=== PATIENT | male | born 1955 | race Caucasian/White ===

== ENCOUNTER 2017-07-24 11:43 | Inpatient (IN) | payer MEDICARE, MEDICAID ==
[~2017-07-24] VITALS: Ht 170.2 cm; Wt 63.5 kg
[2017-07-24 11:45] VITALS: BP 150/88
[2017-07-24] MEDS ORDERED: CATAPRES0.1 MG ORAL (11:50)
[2017-07-24] MEDS ORDERED: COLACE100 MG ORAL (11:50)
[2017-07-24] MEDS ORDERED: NORCO 10-325 T1 EACH ORAL (11:50)
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
[2017-07-24 13:57] VITALS: BP 132/70
[2017-07-24 14:13] LABS: BASOPHILS % (AUTO) 0.7 % (0.0-2.0); EOSINOPHILS % (AUTO) 7.9 % (0.0-3.0); LYMPHOCYTES % (AUTO) 22.7 % (20.0-45.0); MEAN CORPUSCULAR HGB CONC 32.6 G/DL (32.0-36.0); MEAN CORPUSCULAR VOLUME 89 FL (80-99); MEAN PLATELET VOLUME 7.6 FL (6.5-10.1); MONOCYTES % (AUTO) 9.8 % (1.0-10.0); NEUTROPHILS % (AUTO) 58.9 % (45.0-75.0); PLATELET COUNT 187 K/UL (150-450); RED BLOOD COUNT 4.12 M/UL (4.70-6.10); RED CELL DISTRIBUTION WIDTH 13.3 % (11.6-14.8); WHITE BLOOD COUNT 8.3 K/UL (4.8-10.8)
[2017-07-24 14:27] LABS: ALANINE AMINOTRANSFERASE 14 U/L (3-41); ALBUMIN/GLOBULIN RATIO 1.2 (1.0-2.7); ANION GAP 12 (5-15); ASPARTATE AMINO TRANSFERASE 23 U/L (5-40); CALCIUM 9.8 mg/dL (8.6-10.2); CARBON DIOXIDE 29 mEQ/L (20-30); CHLORIDE 99 mEQ/L (98-107); CREATININE 0.8 mg/dL (0.7-1.2); GLOMERULAR FILTRATION RATE > 60 mL/min (>60); HEMOLYSIS 2; POTASSIUM 4.1 mEQ/L (3.4-4.9); SODIUM 140 mEQ/L (135-145); TOTAL PROTEIN 7.8 g/dL (6.6-8.7)
[2017-07-24] MEDS ORDERED: Ketorolac 30mg Inj IV ONE (14:45)
[2017-07-24 15:01] VITALS: BP 117/75
[2017-07-24 18:07] VITALS: BP 124/76
[2017-07-24 20:00] VITALS: BP 134/75
[2017-07-24] MEDS ORDERED: Morphine Sulfate 2mg/ml Inj IVP PRN ×2 (20:00→21:00)
[2017-07-24] MEDS ORDERED: Norco 10mg/325mg tab ORAL PRN (20:15)
[2017-07-24] MEDS ORDERED: Miralax 17gm pkt ORAL PRN (21:00)
[2017-07-24] MEDS ORDERED: Mylanta II UD 30ml ORAL PRN (21:00)
[2017-07-24] MEDS: D5 1/2NS 1,000 ML IV SCH (21:15)
[2017-07-24] MEDS: Heparin 5000 units/ml inj SUBQ SCH (22:49)
[2017-07-25 00:02] VITALS: BP 148/69
[2017-07-25] MEDS: Morphine Sulfate 4mg/ml Inj IVP PRN ×2 (02:36→07:42)
[2017-07-25 04:08] VITALS: BP 130/77
[2017-07-25 07:24] LABS: BASOPHILS % (AUTO) 1.1 % (0.0-2.0); EOSINOPHILS % (AUTO) 11.6 % (0.0-3.0); LYMPHOCYTES % (AUTO) 30.3 % (20.0-45.0); MEAN CORPUSCULAR HEMOGLOBIN 31.6 PG (27.0-31.0); MEAN CORPUSCULAR HGB CONC 35.2 G/DL (32.0-36.0); MEAN CORPUSCULAR VOLUME 90 FL (80-99); MEAN PLATELET VOLUME 7.9 FL (6.5-10.1); PLATELET COUNT 159 K/UL (150-450); RED BLOOD COUNT 3.53 M/UL (4.70-6.10); RED CELL DISTRIBUTION WIDTH 13.4 % (11.6-14.8); WHITE BLOOD COUNT 6.7 K/UL (4.8-10.8)
[2017-07-25 07:31] LABS: ALANINE AMINOTRANSFERASE 12 U/L (3-41); ALBUMIN/GLOBULIN RATIO 1.3 (1.0-2.7); ANION GAP 12 (5-15); ASPARTATE AMINO TRANSFERASE 22 U/L (5-40); CALCIUM 9.4 mg/dL (8.6-10.2); CARBON DIOXIDE 27 mEQ/L (20-30); CHLORIDE 101 mEQ/L (98-107); CREATININE 0.7 mg/dL (0.7-1.2); GLOMERULAR FILTRATION RATE > 60 mL/min (>60); HEMOLYSIS 3; POTASSIUM 4.2 mEQ/L (3.4-4.9); SODIUM 140 mEQ/L (135-145); TOTAL PROTEIN 6.9 g/dL (6.6-8.7)
[2017-07-25] MEDS: Docusate 100mg cap ORAL SCH (07:43)
[2017-07-25] MEDS: Heparin 5000 units/ml inj SUBQ SCH ×2 (07:44→21:53)
[2017-07-25 08:00] VITALS: BP 120/70
--- NOTE | 2017-07-25 08:11 | Consultation ---
History of Present Illness General Date patient seen: Jul 25, 2017 Chief Complaint: Pain Present Illness Allergies: Coded Allergies: No Known Allergies (Unverified , 07/24/17) Medication History Scheduled Clonidine Hcl* (Catapres*), 0.1 MG ORAL EVERY 6 HOURS, (Reported) Docusate Sodium* (Colace*), 100 MG ORAL DAILY, (Reported) Scheduled PRN Hydrocodone Bit/Acetaminophen 10-325* (Mobile 10-325*), 1 TAB ORAL Q4H PRN for For Pain, (Reported) Patient History Healthcare decision maker Resuscitation status Full Code Advanced Directive on File No Physical Exam Last 24 Hour Vital Signs Date Time Temp Pulse Resp B/P (MAP) Pulse Ox O2 Delivery O2 Flow Rate FiO2 07/25/17 08:00 98.2 75 19 120/70 100 Room Air 07/25/17 06:16 139/71 07/25/17 04:08 98.0 62 18 130/77 62 Room Air 07/25/17 00:31 148/69 07/25/17 00:02 98.0 67 18 148/69 98 Room Air 07/24/17 20:00 97.3 80 18 134/75 98 Room Air 07/24/17 18:07 97.1 74 20 124/76 98 Room Air 07/24/17 16:40 98.9 87 20 117/75 98 Room Air 07/24/17 15:01 98.9 87 20 117/75 98 Room Air 07/24/17 13:57 97.7 63 17 132/70 100 Room Air 07/24/17 11:45 96.4 76 18 150/88 98 Room Air 07/24/17 11:45 96.4 76 18 150/88 98 Room Air Laboratory Tests Test 07/24/17 13:40 07/25/17 05:15 White Blood Count 8.3 K/UL (4.8-10.8) 6.7 K/UL (4.8-10.8) Red Blood Count 4.12 M/UL (4.70-6.10) L 3.53 M/UL (4.70-6.10) L Hemoglobin 12.0 G/DL (14.2-18.0) L 11.2 G/DL (14.2-18.0) L Hematocrit 36.7 % (42.0-52.0) L 31.7 % (42.0-52.0) L Mean Corpuscular Volume 89 FL (80-99) 90 FL (80-99) Mean Corpuscular Hemoglobin 29.0 PG (27.0-31.0) 31.6 PG (27.0-31.0) H Mean Corpuscular Hemoglobin Concent 32.6 G/DL (32.0-36.0) 35.2 G/DL (32.0-36.0) Red Cell Distribution Width 13.3 % (11.6-14.8) 13.4 % (11.6-14.8) Platelet Count 187 K/UL (150-450) 159 K/UL (150-450) Mean Platelet Volume 7.6 FL (6.5-10.1) 7.9 FL (6.5-10.1) Neutrophils (%) (Auto) 58.9 % (45.0-75.0) 48.0 % (45.0-75.0) Lymphocytes (%) (Auto) 22.7 % (20.0-45.0) 30.3 % (20.0-45.0) Monocytes (%) (Auto) 9.8 % (1.0-10.0) 9.0 % (1.0-10.0) Eosinophils (%) (Auto) 7.9 % (0.0-3.0) H 11.6 % (0.0-3.0) H Basophils (%) (Auto) 0.7 % (0.0-2.0) 1.1 % (0.0-2.0) Sodium Level 140 mEQ/L (135-145) 140 mEQ/L (135-145) Potassium Level 4.1 mEQ/L (3.4-4.9) 4.2 mEQ/L (3.4-4.9) Chloride Level 99 mEQ/L (98-107) 101 mEQ/L (98-107) Carbon Dioxide Level 29 mEQ/L (20-30) 27 mEQ/L (20-30) Anion Gap 12 (5-15) 12 (5-15) Blood Urea Nitrogen 26 mg/dL (7-23) H 25 mg/dL (7-23) H Creatinine 0.8 mg/dL (0.7-1.2) 0.7 mg/dL (0.7-1.2) Estimat Glomerular Filtration Rate > 60 mL/min (>60) > 60 mL/min (>60) Glucose Level 125 mg/dL (74-106) H 100 mg/dL (74-106) Calcium Level 9.8 mg/dL (8.6-10.2) 9.4 mg/dL (8.6-10.2) Total Bilirubin 0.9 mg/dL (0.0-1.2) 0.8 mg/dL (0.0-1.2) Aspartate Amino Transf (AST/SGOT) 23 U/L (5-40) 22 U/L (5-40) Alanine Aminotransferase (ALT/SGPT) 14 U/L (3-41) 12 U/L (3-41) Alkaline Phosphatase 113 U/L (40-129) 108 U/L (40-129) Total Protein 7.8 g/dL (6.6-8.7) 6.9 g/dL (6.6-8.7) Albumin 4.4 g/dL (3.5-5.2) 3.9 g/dL (3.5-5.2) Globulin 3.4 g/dL 3.0 g/dL Albumin/Globulin Ratio 1.2 (1.0-2.7) 1.3 (1.0-2.7) Thyroid Stimulating Hormone (TSH) 2.280 uIU/mL (0.300-4.500) Height (Feet): 5 Height (Inches): 7.00 Weight (Pounds): 140 Medications Current Medications Medications (Trade) Dose Ordered Sig/Medhat Route PRN Reason Start Time Stop Time Status Last Admin Dose Admin Acetaminophen (Tylenol) 650 mg Q4H PRN ORAL fever 07/24/17 21:00 08/23/17 20:59 Acetaminophen/ Hydrocodone Bitart (Mobile 10/325) 1 ea Q4H PRN ORAL For Pain 07/24/17 20:15 07/31/17 20:14 Al Hydroxide/Mg Hydroxide (Mylanta II) 30 ml Q6H PRN ORAL dyspepsia 07/24/17 21:00 08/23/17 20:59 Clonidine HCl (Catapres) 0.1 mg EVERY 6 HOURS ORAL 07/25/17 00:00 08/24/17 00:00 07/25/17 06:16 Dextrose (Dextrose 50%) STAT PRN IV Hypoglycemia 07/24/17 21:00 08/23/17 20:59 Dextrose/Sodium Chloride 1,000 ml @ 50 mls/hr Q20H IV 07/24/17 21:15 08/23/17 21:14 07/24/17 21:15 Docusate Sodium (Colace) 100 mg DAILY ORAL 07/25/17 09:00 08/24/17 08:59 07/25/17 07:43 Heparin Sodium (Porcine) (Heparin 5000 units/ml) 5,000 units EVERY 12 HOURS SUBQ 07/24/17 21:00 08/23/17 20:59 07/25/17 07:44 Lorazepam (Ativan 2mg/ml 1ml) 0.5 mg Q4H PRN IV For Anxiety 07/24/17 21:00 07/31/17 20:59 Morphine Sulfate (Morphine Sulfate) 2 mg EVERY 4 HOURS PRN IVP For Pain 4-6 07/24/17 21:00 07/31/17 20:59 Morphine Sulfate (Morphine Sulfate) 4 mg Q4H PRN IVP For Pain 7-10 07/24/17 21:00 07/31/17 20:59 07/25/17 07:42 Ondansetron HCl (Zofran) 4 mg Q6H PRN IVP Nausea & Vomiting 07/24/17 21:00 08/23/17 20:59 Polyethylene Glycol (Miralax) 17 gm HSPRN PRN ORAL Constipation 07/24/17 21:00 08/23/17 20:59 Risperidone (RisperDAL) 0.5 mg BID ORAL 07/25/17 09:00 08/24/17 08:59 07/25/17 07:43 Zolpidem Tartrate (Ambien) 5 mg HSPRN PRN ORAL Insomnia 07/24/17 21:00 07/31/17 20:59 Assessment/Plan Assessment/Plan (1) Intractable pain (2) Fracture of right knee region (3) Pubic ramus fracture (4) H/o Polysubstance abuse seen dictated GILMA BANUELOS Jul 25, 2017 08:11
[2017-07-25] MEDS ORDERED: D5 1/2NS 1000ml IV ONE (10:18)
--- NOTE | 2017-07-25 10:50 | Diagnostic Imaging Report ---
Indication: Headache Technique: Contiguous 5 mm thick transaxial imaging of the head obtained in a Siemens Sensation [address] scanner. Soft tissue and bone windows generated. Total Dose length Product (DLP): [address] Dose Index Volume (CTDIvol): 70.38, 0.15 mGy Comparison: none Findings: There is mild prominence of the ventricles, basal cisterns, and cerebral sulci consistent with atrophy. Mild, nonspecific, white matter hypoattenuation is noted throughout the brain consistent with chronic small vessel disease. There is no midline shift, edema, acute hemorrhage, mass effect, or abnormal extra-axial fluid collections. Bones and extra osseous soft tissues are unremarkable. The right globe is absent. Impression: No acute intracranial bleed, mass effect or edema. Mild atrophy of the brain. Nonspecific white matter hypoattenuation probably due to chronic small vessel disease. Dr. Aparicio has communicated the preliminary results to the Emergency Department. There are no significant discrepancies. The CT scanner at [facility] is accredited by the [employer] and the scans are performed using dose optimization techniques as appropriate to a performed exam including Automatic Exposure control.
[2017-07-25 12:00] VITALS: BP 131/73
[2017-07-25] MEDS ORDERED: Norco 10mg/325mg tab ORAL PRN (13:15)
--- NOTE | 2017-07-25 14:29 | Consultation ---
History of Present Illness General Date patient seen: Jul 25, 2017 Chief Complaint: Pain Present Illness HPI 61-year-old male with hx of HTN, recent right tibial plateau fracture presents to the emergency department for intractable pain. Patient reports pain to be 10 out of 10 in severity at this time states he has had continued pain with no changes in character since initial injury. Patient denies new trauma or fall. Denies fevers, chills or erythema. Denies numbness tingling or loss of sensation or gross motor movements of the extremities, incontinence of bowel or bladder. Allergies: Coded Allergies: No Known Allergies (Unverified , 07/24/17) Medication History Scheduled Clonidine Hcl* (Catapres*), 0.1 MG ORAL EVERY 6 HOURS, (Reported) Docusate Sodium* (Colace*), 100 MG ORAL DAILY, (Reported) Scheduled PRN Hydrocodone Bit/Acetaminophen 10-325* ([place] 10-325*), 1 TAB ORAL Q4H PRN for For Pain, (Reported) Patient History Healthcare decision maker Resuscitation status Full Code Advanced Directive on File No Past Medical/Surgical History Past Medical/Surgical History: (1) Hypertension Review of Systems All Other Systems: negative except mentioned in HPI Physical Exam General Appearance: WD/WN, no apparent distress Lines, tubes and drains: peripheral, central line HEENT: normocephalic, atraumatic Neck: non-tender, normal alignment Respiratory/Chest: chest wall non-tender, lungs clear Cardiovascular/Chest: no JVD Abdomen: non tender Genitourinary/Rectal: normal genital exam, normal rectal exam Extremities: normal range of motion, non-tender Skin Exam: warm/dry Neurologic: international project engineer II-XII grossly normal Last 24 Hour Vital Signs Date Time Temp Pulse Resp B/P (MAP) Pulse Ox O2 Delivery O2 Flow Rate FiO2 07/25/17 12:04 131/73 07/25/17 12:00 97.5 68 19 131/73 99 Room Air 07/25/17 08:12 98.2 07/25/17 08:00 98.2 75 19 120/70 100 Room Air 07/25/17 06:16 139/71 07/25/17 04:08 98.0 62 18 130/77 62 Room Air 07/25/17 00:31 148/69 07/25/17 00:02 98.0 67 18 148/69 98 Room Air 07/24/17 20:00 97.3 80 18 134/75 98 Room Air 07/24/17 18:07 97.1 74 20 124/76 98 Room Air 07/24/17 16:40 98.9 87 20 117/75 98 Room Air 07/24/17 15:01 98.9 87 20 117/75 98 Room Air Intake and Output 07/25/17 07/26/17 19:00 07:00 Intake Total 360 ml Output Total 675 ml Balance -315 ml Intake Oral 360 ml Output Urine Total 675 ml Laboratory Tests Test 07/25/17 05:15 White Blood Count 6.7 K/UL (4.8-10.8) Red Blood Count 3.53 M/UL (4.70-6.10) L Hemoglobin 11.2 G/DL (14.2-18.0) L Hematocrit 31.7 % (42.0-52.0) L Mean Corpuscular Volume 90 FL (80-99) Mean Corpuscular Hemoglobin 31.6 PG (27.0-31.0) H Mean Corpuscular Hemoglobin Concent 35.2 G/DL (32.0-36.0) Red Cell Distribution Width 13.4 % (11.6-14.8) Platelet Count 159 K/UL (150-450) Mean Platelet Volume 7.9 FL (6.5-10.1) Neutrophils (%) (Auto) 48.0 % (45.0-75.0) Lymphocytes (%) (Auto) 30.3 % (20.0-45.0) Monocytes (%) (Auto) 9.0 % (1.0-10.0) Eosinophils (%) (Auto) 11.6 % (0.0-3.0) H Basophils (%) (Auto) 1.1 % (0.0-2.0) Sodium Level 140 mEQ/L (135-145) Potassium Level 4.2 mEQ/L (3.4-4.9) Chloride Level 101 mEQ/L (98-107) Carbon Dioxide Level 27 mEQ/L (20-30) Anion Gap 12 (5-15) Blood Urea Nitrogen 25 mg/dL (7-23) H Creatinine 0.7 mg/dL (0.7-1.2) Estimat Glomerular Filtration Rate > 60 mL/min (>60) Glucose Level 100 mg/dL (74-106) Calcium Level 9.4 mg/dL (8.6-10.2) Total Bilirubin 0.8 mg/dL (0.0-1.2) Aspartate Amino Transf (AST/SGOT) 22 U/L (5-40) Alanine Aminotransferase (ALT/SGPT) 12 U/L (3-41) Alkaline Phosphatase 108 U/L (40-129) Total Protein 6.9 g/dL (6.6-8.7) Albumin 3.9 g/dL (3.5-5.2) Globulin 3.0 g/dL Albumin/Globulin Ratio 1.3 (1.0-2.7) Thyroid Stimulating Hormone (TSH) 2.280 uIU/mL (0.300-4.500) Height (Feet): 5 Height (Inches): 7.00 Weight (Pounds): 140 Medications Current Medications Medications (Trade) Dose Ordered Sig/Medhat Route PRN Reason Start Time Stop Time Status Last Admin Dose Admin Acetaminophen (Tylenol) 650 mg Q4H PRN ORAL fever 07/24/17 21:00 08/23/17 20:59 Acetaminophen/ Hydrocodone Bitart ([place] 10/325) 1 ea Q4H PRN ORAL MILD BREAKTHROUGH PAIN 07/25/17 13:15 07/31/17 20:14 Al Hydroxide/Mg Hydroxide (Mylanta II) 30 ml Q6H PRN ORAL dyspepsia 07/24/17 21:00 08/23/17 20:59 Clonidine HCl (Catapres) 0.1 mg EVERY 6 HOURS ORAL 07/25/17 00:00 08/24/17 00:00 07/25/17 12:04 Dextrose (Dextrose 50%) STAT PRN IV Hypoglycemia 07/24/17 21:00 08/23/17 20:59 Dextrose/Sodium Chloride 1,000 ml @ 50 mls/hr Q20H IV 07/24/17 21:15 08/23/17 21:14 07/24/17 21:15 Docusate Sodium (Colace) 100 mg DAILY ORAL 07/25/17 09:00 08/24/17 08:59 07/25/17 07:43 Heparin Sodium (Porcine) (Heparin 5000 units/ml) 5,000 units EVERY 12 HOURS SUBQ 07/24/17 21:00 08/23/17 20:59 07/25/17 07:44 Lorazepam (Ativan 2mg/ml 1ml) 0.5 mg Q4H PRN IV For Anxiety 07/24/17 21:00 07/31/17 20:59 Methadone HCl (Methadone HCl) 75 mg DAILY ORAL 07/25/17 13:30 08/01/17 13:29 07/25/17 13:08 Morphine Sulfate (Morphine Sulfate) 2 mg Q4H PRN IVP MODERATE BREAKTHROUGH PAIN 07/25/17 13:15 07/31/17 20:59 Morphine Sulfate (Morphine Sulfate) 4 mg Q4H PRN IVP SEVERE BREAKTHROUGH PAIN 07/25/17 13:15 07/31/17 20:59 Ondansetron HCl (Zofran) 4 mg Q6H PRN IVP Nausea & Vomiting 07/24/17 21:00 08/23/17 20:59 Polyethylene Glycol (Miralax) 17 gm HSPRN PRN ORAL Constipation 07/24/17 21:00 08/23/17 20:59 Risperidone (RisperDAL) 0.5 mg BID ORAL 07/25/17 09:00 08/24/17 08:59 07/25/17 07:43 Zolpidem Tartrate (Ambien) 5 mg HSPRN PRN ORAL Insomnia 07/24/17 21:00 07/31/17 20:59 Assessment/Plan Problem List: (1) Hypertension ICD Codes: I10 - Essential (primary) hypertension SNOMED: 06009483 (2) Intractable pain ICD Codes: R52 - Pain, unspecified SNOMED: 32258819 (3) Pubic ramus fracture ICD Codes: S32.599A - Other specified fracture of unspecified pubis, initial encounter for closed fracture SNOMED: 13603945 Qualifiers: Qualified Codes: S32.592A - Other specified fracture of left pubis, initial encounter for closed fracture (4) Fracture of right knee region SNOMED: 38422192 Assessment/Plan symptomatic treatment Pain consult watch BP dvt prophylaxis JAMIE MENDEZ Jul 25, 2017 14:29
[2017-07-25 16:00] VITALS: BP 123/65
--- NOTE | 2017-07-25 17:00 | Consultation ---
DATE OF CONSULTATION: 07/24/2017 HISTORY OF PRESENT ILLNESS: The patient is a male patient who is 61-year-old, he was admitted to [facility] secondary to intractable pain, but he also has an overlying diagnosis of paranoid schizophrenia, multiple psychiatric admissions and so that is why there was a psychiatric consultation requested to evaluate this patient to reduce agitation and irritability. PAST MEDICAL HISTORY: The patient has history of hypertension. ALLERGIES: No known drug allergies. SOCIAL HISTORY: The patient lives in , financially supported by [facility] and Medicare. He is currently living in [facility]. MENTAL STATUS EXAMINATION: This is a 61-year-old male with psychomotor retardation. Mood is depressed. Affect guarded and restricted. Thought process disorganized and illogical. Denies any current suicidal or homicidal thoughts. Insight and judgment is poor. DIAGNOSIS: Paranoid schizophrenia with acute exacerbation. PLAN: My plan for this patient is to treat him with a psychotropic medication regimen to stabilize his mood and encourage him to interact appropriately with staff and another patients. Chart reviewed and discussed with staff. Seen and assessed in his room. I would like to thank Dr. Sudhir Schmitt for this interesting consultation. Taya Lane M.D. DR: DERECK JOB#: [id number] CC:
[2017-07-25] MEDS: D5 1/2NS 1,000 ML IV SCH (17:22)
--- NOTE | 2017-07-25 19:42 | Cardiology Report ---
APPROVED REPORT EKG Measurement Heart [id number] Normal sinus rhythm Nonspecific ST abnormality Abnormal ECG
[2017-07-25] MEDS: Morphine Sulfate 2mg/ml Inj IVP PRN (19:46)
[2017-07-25 20:00] VITALS: BP 115/68
[2017-07-26] VITALS: BP 132/76
[2017-07-26] MEDS: Morphine Sulfate 4mg/ml Inj IVP PRN (00:23)
--- NOTE | 2017-07-26 01:15 | Progress Note ---
DATE: 07/25/2017 SUBJECTIVE: I am going to continue treating this patient with psychotropic medications to prevent any further decline in his cognition. Chart was reviewed and discussed with staff. Seen and assessed at bedside. Taya Lane M.D. DR: DERECK JOB#: [id number] CC:
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
[2017-07-26 04:00] VITALS: BP 132/69
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
[2017-07-26] MEDS: Morphine Sulfate 2mg/ml Inj IVP PRN ×2 (05:57→18:54)
[2017-07-26 06:48] LABS: ANION GAP 11 (5-15); CALCIUM 9.5 mg/dL (8.6-10.2); CARBON DIOXIDE 25 mEQ/L (20-30); CHLORIDE 101 mEQ/L (98-107); CREATININE 0.9 mg/dL (0.7-1.2); GLOMERULAR FILTRATION RATE > 60 mL/min (>60); HEMOLYSIS 5; POTASSIUM 3.9 mEQ/L (3.4-4.9); SODIUM 137 mEQ/L (135-145)
[2017-07-26 06:57] LABS: BASOPHILS % (AUTO) 0.9 % (0.0-2.0); EOSINOPHILS % (AUTO) 8.5 % (0.0-3.0); LYMPHOCYTES % (AUTO) 24.4 % (20.0-45.0); MEAN CORPUSCULAR HEMOGLOBIN 29.3 PG (27.0-31.0); MEAN CORPUSCULAR HGB CONC 32.9 G/DL (32.0-36.0); MEAN CORPUSCULAR VOLUME 89 FL (80-99); MEAN PLATELET VOLUME 6.9 FL (6.5-10.1); MONOCYTES % (AUTO) 9.8 % (1.0-10.0); NEUTROPHILS % (AUTO) 56.3 % (45.0-75.0); PLATELET COUNT 151 K/UL (150-450); RED BLOOD COUNT 3.91 M/UL (4.70-6.10); RED CELL DISTRIBUTION WIDTH 13.1 % (11.6-14.8); WHITE BLOOD COUNT 5.2 K/UL (4.8-10.8)
[2017-07-26 08:00] VITALS: BP 110/67
--- NOTE | 2017-07-26 08:39 | General Progress Note ---
Assessment/Plan Assessment/Plan (1) Intractable pain (2) Fracture of right knee region (3) Pubic ramus fracture (4) H/o Polysubstance abuse Pt will be continued on Morphine, [place] and Methadone. D/w Dr. Clay and he concurred. Subjective Date patient seen: Jul 26, 2017 Time patient seen: 08:00 - am Allergies: Coded Allergies: No Known Allergies (Unverified , 07/24/17) Subjective REVIEW OF SYSTEMS: Denies rash, fever, chills, sweating, dizziness, drowsiness, blurred vision, sore throat, or change in his weight. No shortness of breath, chest pain, palpitations, or cough. No nausea, vomiting, diarrhea, or blood in the stool or urine. No bowel or bladder incontinence. No dysuria. He complains of right knee pain and pelvic pain. SUBJECTIVE: Patient is in bed no signs of pain or distress. The pain has been tolerated on the current medication. Objective Last 24 Hour Vital Signs Date Time Temp Pulse Resp B/P (MAP) Pulse Ox O2 Delivery O2 Flow Rate FiO2 07/26/17 08:00 97.7 70 18 110/67 99 Room Air 07/26/17 06:02 132/70 07/26/17 04:00 97.3 63 18 132/69 100 Room Air 07/26/17 00:17 132/76 07/26/17 00:00 97.1 64 18 132/76 99 Room Air 07/25/17 20:00 97.6 64 18 115/68 98 Room Air 07/25/17 17:22 123/65 07/25/17 16:00 97.9 67 20 123/65 99 Room Air 07/25/17 12:04 131/73 07/25/17 12:00 97.5 68 19 131/73 99 Room Air Laboratory Tests 07/26/17 05:35: White Blood Count 5.2, Red Blood Count 3.91L, Hemoglobin 11.5L, Hematocrit 34.8L , Mean Corpuscular Volume 89, Mean Corpuscular Hemoglobin 29.3, Mean Corpuscular Hemoglobin Concent 32.9, Red Cell Distribution Width 13.1, Platelet Count 151, Mean Platelet Volume 6.9, Neutrophils (%) (Auto) 56.3, Lymphocytes (% ) (Auto) 24.4, Monocytes (%) (Auto) 9.8, Eosinophils (%) (Auto) 8.5H, Basophils (%) (Auto) 0.9, Sodium Level 137, Potassium Level 3.9, Chloride Level 101, Carbon Dioxide Level 25, Anion Gap 11, Blood Urea Nitrogen 19, Creatinine 0.9, Estimat Glomerular Filtration Rate > 60, Glucose Level 117H, Calcium Level 9.5 Height (Feet): 5 Height (Inches): 7.00 Weight (Pounds): 140 Objective GENERAL: Alert, awake, and oriented. HEENT: PERRLA. NECK: Range of motion is full in all directions. No tenderness to paracervical muscles. No adenopathy. LUNGS: Decreased breath sounds bilaterally. ABDOMEN: Benign. BACK: Range of motion is decreased in flexion and extension with tenderness to paraspinal muscles. No tenderness to trapezius or rhomboid muscles. EXTREMITIES: Lower extremity range of motion is decreased due to the patient's clinical condition. Motor is intact. No cyanosis. No clubbing. NEURO: No changes. GILMA BANUELOS Jul 26, 2017 08:39
[2017-07-26] MEDS: Heparin 5000 units/ml inj SUBQ SCH ×2 (09:00→21:42)
[2017-07-26] MEDS: Docusate 100mg cap ORAL SCH (09:37)
[2017-07-26 12:00] VITALS: BP 120/70
[2017-07-26] MEDS: D5 1/2NS 1,000 ML IV SCH (12:43)
--- NOTE | 2017-07-26 14:16 | General Progress Note ---
Assessment/Plan Problem List: (1) Intractable pain ICD Codes: R52 - Pain, unspecified SNOMED: 59233859 (2) Hypertension ICD Codes: I10 - Essential (primary) hypertension SNOMED: 63387014 (3) Pubic ramus fracture ICD Codes: S32.599A - Other specified fracture of unspecified pubis, initial encounter for closed fracture SNOMED: 30080470 Qualifiers: Qualified Codes: S32.592A - Other specified fracture of left pubis, initial encounter for closed fracture (4) Fracture of right knee region SNOMED: 59877384 Status: stable, progressing, tolerating diet Assessment/Plan ot pt diet pain control cbc bmp am Subjective Constitutional: Reports: weakness Allergies: Coded Allergies: No Known Allergies (Unverified , 07/24/17) All Systems: reviewed and negative except above Subjective calm in bed Objective Last 24 Hour Vital Signs Date Time Temp Pulse Resp B/P (MAP) Pulse Ox O2 Delivery O2 Flow Rate FiO2 07/26/17 12:00 97.4 68 17 120/70 98 Room Air 07/26/17 12:00 120/70 07/26/17 08:00 97.7 70 18 110/67 99 Room Air 07/26/17 06:02 132/70 07/26/17 04:00 97.3 63 18 132/69 100 Room Air 07/26/17 00:17 132/76 07/26/17 00:00 97.1 64 18 132/76 99 Room Air 07/25/17 20:00 97.6 64 18 115/68 98 Room Air 07/25/17 17:22 123/65 07/25/17 16:00 97.9 67 20 123/65 99 Room Air Intake and Output 07/26/17 07/27/17 19:00 07:00 Intake Total 150 ml Balance 150 ml IV Total 150 ml # Voids 2 Laboratory Tests 07/26/17 05:35: White Blood Count 5.2, Red Blood Count 3.91L, Hemoglobin 11.5L, Hematocrit 34.8L , Mean Corpuscular Volume 89, Mean Corpuscular Hemoglobin 29.3, Mean Corpuscular Hemoglobin Concent 32.9, Red Cell Distribution Width 13.1, Platelet Count 151, Mean Platelet Volume 6.9, Neutrophils (%) (Auto) 56.3, Lymphocytes (% ) (Auto) 24.4, Monocytes (%) (Auto) 9.8, Eosinophils (%) (Auto) 8.5H, Basophils (%) (Auto) 0.9, Sodium Level 137, Potassium Level 3.9, Chloride Level 101, Carbon Dioxide Level 25, Anion Gap 11, Blood Urea Nitrogen 19, Creatinine 0.9, Estimat Glomerular Filtration Rate > 60, Glucose Level 117H, Calcium Level 9.5 Height (Feet): 5 Height (Inches): 7.00 Weight (Pounds): 140 General Appearance: lethargic EENT: normal ENT inspection Neck: normal alignment Cardiovascular: normal peripheral pulses, normal rate, regular rhythm Respiratory/Chest: chest wall non-tender, lungs clear, normal breath sounds Abdomen: normal bowel sounds, non tender, soft Extremities: normal inspection Edema: no edema noted Arm (L), no edema noted Arm (R), no edema noted Leg (L), no edema noted Leg (R), no edema noted Pedal (L), no edema noted Pedal (R), no edema noted Generalized Neurologic: motor weakness Skin: normal pigmentation, warm/dry GENIE PALACIOS Jul 26, 2017 14:16
[2017-07-26 16:06] VITALS: BP 129/77
--- NOTE | 2017-07-26 18:59 | Pulmonology Progress Note ---
Assessment/Plan Problems: (1) Intractable pain (2) Hypertension (3) Pubic ramus fracture (4) Fracture of right knee region Assessment/Plan continue analgesics pt/ot dc planning Subjective ROS Limited/Unobtainable: No Allergies: Coded Allergies: No Known Allergies (Unverified , 07/24/17) Objective Last 24 Hour Vital Signs Date Time Temp Pulse Resp B/P (MAP) Pulse Ox O2 Delivery O2 Flow Rate FiO2 07/26/17 17:23 129/77 07/26/17 16:06 98.2 19 129/77 97 Room Air 07/26/17 12:00 97.4 68 17 120/70 98 Room Air 07/26/17 12:00 120/70 07/26/17 08:00 97.7 70 18 110/67 99 Room Air 07/26/17 06:02 132/70 07/26/17 04:00 97.3 63 18 132/69 100 Room Air 07/26/17 00:17 132/76 07/26/17 00:00 97.1 64 18 132/76 99 Room Air 07/25/17 20:00 97.6 64 18 115/68 98 Room Air Intake and Output 07/26/17 07/27/17 19:00 07:00 Intake Total 640 ml Balance 640 ml Intake Oral 340 ml IV Total 300 ml # Voids 5 # Bowel Movements 1 General Appearance: WD/WN HEENT: normocephalic, atraumatic Respiratory/Chest: chest wall non-tender, lungs clear Cardiovascular: normal peripheral pulses, normal rate Abdomen: normal bowel sounds, soft, non tender Extremities: no cyanosis Skin: no rash Neurologic/Psychiatric: hr assistant II-XII grossly normal Microbiology Date/Time Source Procedure Growth Status 07/24/17 16:38 Nasal Nares MRSA Culture - Final NO METHICILLIN RESISTANT STAPH AUREUS... Complete 07/24/17 16:38 Rectum VRE Culture - Final NO VANCOMYCIN RESISTANT ENTEROCOCCUS ... Complete Laboratory Tests 07/26/17 05:35: White Blood Count 5.2, Red Blood Count 3.91L, Hemoglobin 11.5L, Hematocrit 34.8L , Mean Corpuscular Volume 89, Mean Corpuscular Hemoglobin 29.3, Mean Corpuscular Hemoglobin Concent 32.9, Red Cell Distribution Width 13.1, Platelet Count 151, Mean Platelet Volume 6.9, Neutrophils (%) (Auto) 56.3, Lymphocytes (% ) (Auto) 24.4, Monocytes (%) (Auto) 9.8, Eosinophils (%) (Auto) 8.5H, Basophils (%) (Auto) 0.9, Sodium Level 137, Potassium Level 3.9, Chloride Level 101, Carbon Dioxide Level 25, Anion Gap 11, Blood Urea Nitrogen 19, Creatinine 0.9, Estimat Glomerular Filtration Rate > 60, Glucose Level 117H, Calcium Level 9.5 Current Medications Medications (Trade) Dose Ordered Sig/Medhat Route PRN Reason Start Time Stop Time Status Last Admin Dose Admin Acetaminophen (Tylenol) 650 mg Q4H PRN ORAL fever 07/24/17 21:00 08/23/17 20:59 Acetaminophen/ Hydrocodone Bitart ([place] 10/325) 1 ea Q4H PRN ORAL MILD BREAKTHROUGH PAIN 07/25/17 13:15 07/31/17 20:14 Al Hydroxide/Mg Hydroxide (Mylanta II) 30 ml Q6H PRN ORAL dyspepsia 07/24/17 21:00 08/23/17 20:59 Clonidine HCl (Catapres) 0.1 mg EVERY 6 HOURS ORAL 07/25/17 00:00 08/24/17 00:00 07/26/17 06:02 Dextrose (Dextrose 50%) STAT PRN IV Hypoglycemia 07/24/17 21:00 08/23/17 20:59 Dextrose/Sodium Chloride 1,000 ml @ 50 mls/hr Q20H IV 07/24/17 21:15 08/23/17 21:14 07/26/17 12:43 Docusate Sodium (Colace) 100 mg DAILY ORAL 07/25/17 09:00 08/24/17 08:59 07/26/17 09:37 Heparin Sodium (Porcine) (Heparin 5000 units/ml) 5,000 units EVERY 12 HOURS SUBQ 07/24/17 21:00 08/23/17 20:59 07/26/17 09:00 Lorazepam (Ativan 2mg/ml 1ml) 0.5 mg Q4H PRN IV For Anxiety 07/24/17 21:00 07/31/17 20:59 Methadone HCl (Methadone HCl) 75 mg DAILY ORAL 07/25/17 13:30 08/01/17 13:29 07/26/17 09:39 Morphine Sulfate (Morphine Sulfate) 2 mg Q4H PRN IVP MODERATE BREAKTHROUGH PAIN 07/25/17 13:15 07/31/17 20:59 07/26/17 18:54 Morphine Sulfate (Morphine Sulfate) 4 mg Q4H PRN IVP SEVERE BREAKTHROUGH PAIN 07/25/17 13:15 07/31/17 20:59 07/26/17 00:23 Ondansetron HCl (Zofran) 4 mg Q6H PRN IVP Nausea & Vomiting 07/24/17 21:00 08/23/17 20:59 Polyethylene Glycol (Miralax) 17 gm HSPRN PRN ORAL Constipation 07/24/17 21:00 08/23/17 20:59 Risperidone (RisperDAL) 0.5 mg BID ORAL 07/25/17 09:00 08/24/17 08:59 07/26/17 18:05 Zolpidem Tartrate (Ambien) 5 mg HSPRN PRN ORAL Insomnia 07/24/17 21:00 07/31/17 20:59 JAMIE MENDEZ Jul 26, 2017 18:59
[2017-07-26 20:09] VITALS: BP 126/77
[2017-07-26] MEDS: Norco 10mg/325mg tab ORAL PRN (21:40)
[2017-07-26] MEDS: Zolpidem 5mg tab ORAL PRN (23:15)
[2017-07-27] VITALS (8 sets, daily range): BP systolic 101–150; BP diastolic 54–104
[2017-07-27] MEDS: LORazepam Inj 2mg/ml 1ml IV PRN (04:26)
[2017-07-27] MEDS: Morphine Sulfate 2mg/ml Inj IVP PRN (05:03)
[2017-07-27] MEDS: Norco 10mg/325mg tab ORAL PRN (05:45)
[2017-07-27 06:56] LABS: BASOPHILS % (AUTO) 1.1 % (0.0-2.0); EOSINOPHILS % (AUTO) 3.4 % (0.0-3.0); LYMPHOCYTES % (AUTO) 14.2 % (20.0-45.0); MEAN CORPUSCULAR HGB CONC 33.9 G/DL (32.0-36.0); MEAN CORPUSCULAR VOLUME 89 FL (80-99); MEAN PLATELET VOLUME 6.9 FL (6.5-10.1); MONOCYTES % (AUTO) 9.2 % (1.0-10.0); NEUTROPHILS % (AUTO) 72.1 % (45.0-75.0); PLATELET COUNT 203 K/UL (150-450); RED BLOOD COUNT 4.01 M/UL (4.70-6.10); RED CELL DISTRIBUTION WIDTH 13.1 % (11.6-14.8); WHITE BLOOD COUNT 7.8 K/UL (4.8-10.8)
[2017-07-27] MEDS: Morphine Sulfate 4mg/ml Inj IVP PRN (07:01)
[2017-07-27 07:06] LABS: ANION GAP 15 (5-15); CALCIUM 9.8 mg/dL (8.6-10.2); CARBON DIOXIDE 24 mEQ/L (20-30); CHLORIDE 100 mEQ/L (98-107); CREATININE 0.8 mg/dL (0.7-1.2); GLOMERULAR FILTRATION RATE > 60 mL/min (>60); HEMOLYSIS 1; POTASSIUM 3.3 mEQ/L (3.4-4.9); SODIUM 139 mEQ/L (135-145)
[2017-07-27] MEDS: Heparin 5000 units/ml inj SUBQ SCH ×2 (07:51→20:50)
[2017-07-27] MEDS: Docusate 100mg cap ORAL SCH (07:51)
[2017-07-27] MEDS: D5 1/2NS 1,000 ML IV SCH (07:54)
--- NOTE | 2017-07-27 08:13 | General Progress Note ---
Assessment/Plan Assessment/Plan (1) Intractable pain (2) Fracture of right knee region (3) Pubic ramus fracture (4) H/o Polysubstance abuse Pt will be continued on Methadone. We will discontinue [place] and Morphine. We will prescribe Neurontin 300mg TID, Dilaudid 4mg PO 1 tab Q4H PRN severe pain. D/w Dr. Clay and he concurred. Subjective Date patient seen: Jul 27, 2017 Time patient seen: 06:45 - am Allergies: Coded Allergies: No Known Allergies (Unverified , 07/24/17) Subjective REVIEW OF SYSTEMS: Denies rash, fever, chills, sweating, dizziness, drowsiness, blurred vision, sore throat, or change in his weight. No shortness of breath, chest pain, palpitations, or cough. No nausea, vomiting, diarrhea, or blood in the stool or urine. No bowel or bladder incontinence. No dysuria. He complains of right knee pain and pelvic pain. SUBJECTIVE: Patient reports that he is in severe pain due to seizure and will be seen by Neurologist. The pain has not been tolerated on the [place] and Morphine. Objective Last 24 Hour Vital Signs Date Time Temp Pulse Resp B/P (MAP) Pulse Ox O2 Delivery O2 Flow Rate FiO2 07/27/17 08:00 98.5 77 20 150/83 98 Room Air 07/27/17 07:31 98.4 07/27/17 05:09 153/82 07/27/17 04:00 98.4 84 22 147/82 97 Room Air 07/27/17 01:05 117/54 07/27/17 00:05 97.7 57 19 117/54 99 Room Air 07/26/17 20:09 97.8 61 18 126/77 100 Room Air 07/26/17 19:24 98.2 07/26/17 17:23 129/77 07/26/17 16:06 98.2 19 129/77 97 Room Air 07/26/17 12:00 97.4 68 17 120/70 98 Room Air 07/26/17 12:00 120/70 Laboratory Tests 07/27/17 05:20: White Blood Count 7.8, Red Blood Count 4.01L, Hemoglobin 12.0L, Hematocrit 35.5L , Mean Corpuscular Volume 89, Mean Corpuscular Hemoglobin 30.0, Mean Corpuscular Hemoglobin Concent 33.9, Red Cell Distribution Width 13.1, Platelet Count 203, Mean Platelet Volume 6.9, Neutrophils (%) (Auto) 72.1, Lymphocytes (% ) (Auto) 14.2L, Monocytes (%) (Auto) 9.2, Eosinophils (%) (Auto) 3.4H, Basophils (%) (Auto) 1.1, Sodium Level 139, Potassium Level 3.3L, Chloride Level 100, Carbon Dioxide Level 24, Anion Gap 15, Blood Urea Nitrogen 15, Creatinine 0.8, Estimat Glomerular Filtration Rate > 60, Glucose Level 142H, Calcium Level 9.8 Height (Feet): 5 Height (Inches): 7.00 Weight (Pounds): 140 Objective GENERAL: Alert, awake, and oriented. HEENT: PERRLA. NECK: Range of motion is full in all directions. No tenderness to paracervical muscles. No adenopathy. LUNGS: Decreased breath sounds bilaterally. ABDOMEN: Benign. BACK: Range of motion is decreased in flexion and extension with tenderness to paraspinal muscles. No tenderness to trapezius or rhomboid muscles. EXTREMITIES: Lower extremity range of motion is decreased due to the patient's clinical condition. Motor is intact. No cyanosis. No clubbing. NEURO: No changes. GILMA BANUELOS Jul 27, 2017 08:13
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
--- NOTE | 2017-07-27 11:14 | Diagnostic Imaging Report ---
Indication: pain Findings: Single AP view of the pelvis was performed. There is a fracture of the left acetabulum demonstrated. There is disruption of the left iliopectineal line. In addition there is evidence of a fracture of the left inferior pubic ramus. The femoral necks are not evaluated well on this study because of external rotation. The bones are osteopenic. Impression: Left pubic fracture. This appears acute and there is involvement of the acetabulum. According to the chart, this appears to be the patient's admitting diagnosis
--- NOTE | 2017-07-27 12:29 | Diagnostic Imaging Report ---
Indication: Right knee pain. Acute fracture Technique: Continuous helical imaging of the right knee was performed in the transaxial plane. Coronal 2-D reformatted images were also generated. Study obtained in a Siemens Sensation [address] total DLP 453 mGycm CTD/vol 0.15, 0.15, 15.26 mGy Comparison: None Findings: There is an acute comminuted fracture of the lateral tibial plateau with inferior depression of a portion of the plateau surface. Vertically oriented fracture lines extend into the lateral tibial plateau. There is one fracture line that is seen extending into lateral and medial tibial spines with part of the fracture extending into the anterior, medial compartment. There is a fracture line that exits the lateral tibial metaphysis toward the fibular head. There is another fracture line that exits anterior metaphysis just lateral to the tibial tuberosity. There is also a nondisplaced vertically oriented fracture of the fibular head and neck. The visualized distal femur appears intact. There is a tiny well-corticated ossicle at the tibial attachment of the MCL, which may be an old injury. There is moderate narrowing of the medial compartment. The patella is intact. There is a small joint hemarthrosis. The bones are osteopenic diffusely. The popliteal artery is mildly calcified. Impression: Acute, comminuted, moderately depressed fracture of the lateral tibial plateau as described above. Acute nondisplaced fracture of the fibular head. Joint hemarthrosis. Osteoporosis and moderate osteoarthritis The CT scanner at [facility] is accredited by the [employer] [place] and the scans are performed using dose optimization techniques as appropriate to a performed exam including Automatic Exposure control.
--- NOTE | 2017-07-27 12:59 | General Progress Note ---
Assessment/Plan Problem List: (1) Intractable pain ICD Codes: R52 - Pain, unspecified SNOMED: 42509379 (2) Hypertension ICD Codes: I10 - Essential (primary) hypertension SNOMED: 53328331 (3) Pubic ramus fracture ICD Codes: S32.599A - Other specified fracture of unspecified pubis, initial encounter for closed fracture SNOMED: 55299324 Qualifiers: Qualified Codes: S32.592A - Other specified fracture of left pubis, initial encounter for closed fracture (4) Fracture of right knee region SNOMED: 31900178 Status: stable, progressing, tolerating diet Assessment/Plan ot pt diet pain control dc to snf Subjective Constitutional: Reports: weakness Allergies: Coded Allergies: No Known Allergies (Unverified , 07/24/17) All Systems: reviewed and negative except above Subjective calm in bed Objective Last 24 Hour Vital Signs Date Time Temp Pulse Resp B/P (MAP) Pulse Ox O2 Delivery O2 Flow Rate FiO2 07/27/17 12:00 117/69 07/27/17 12:00 98.4 80 19 117/69 95 Room Air 07/27/17 08:00 98.5 77 20 150/83 98 Room Air 07/27/17 07:31 98.4 07/27/17 05:09 153/82 07/27/17 04:00 98.4 84 22 147/82 97 Room Air 07/27/17 01:05 117/54 07/27/17 00:05 97.7 57 19 117/54 99 Room Air 07/26/17 20:09 97.8 61 18 126/77 100 Room Air 07/26/17 19:24 98.2 07/26/17 17:23 129/77 07/26/17 16:06 98.2 19 129/77 97 Room Air Intake and Output 07/27/17 07/28/17 19:00 07:00 Intake Total 440 ml Output Total 100 ml Balance 340 ml Intake Oral 240 ml IV Total 200 ml Output Urine Total 100 ml # Voids 1 Laboratory Tests 07/27/17 05:20: White Blood Count 7.8, Red Blood Count 4.01L, Hemoglobin 12.0L, Hematocrit 35.5L , Mean Corpuscular Volume 89, Mean Corpuscular Hemoglobin 30.0, Mean Corpuscular Hemoglobin Concent 33.9, Red Cell Distribution Width 13.1, Platelet Count 203, Mean Platelet Volume 6.9, Neutrophils (%) (Auto) 72.1, Lymphocytes (% ) (Auto) 14.2L, Monocytes (%) (Auto) 9.2, Eosinophils (%) (Auto) 3.4H, Basophils (%) (Auto) 1.1, Sodium Level 139, Potassium Level 3.3L, Chloride Level 100, Carbon Dioxide Level 24, Anion Gap 15, Blood Urea Nitrogen 15, Creatinine 0.8, Estimat Glomerular Filtration Rate > 60, Glucose Level 142H, Calcium Level 9.8 Height (Feet): 5 Height (Inches): 7.00 Weight (Pounds): 140 General Appearance: lethargic EENT: PERRL/EOMI Neck: normal alignment Cardiovascular: normal peripheral pulses, normal rate, regular rhythm Respiratory/Chest: chest wall non-tender, lungs clear, normal breath sounds Abdomen: normal bowel sounds, non tender, soft Extremities: normal inspection Edema: no edema noted Arm (L), no edema noted Arm (R), no edema noted Leg (L), no edema noted Leg (R), no edema noted Pedal (L), no edema noted Pedal (R), no edema noted Generalized Neurologic: motor weakness Skin: normal pigmentation, warm/dry GENIE PALACIOS Jul 27, 2017 12:58
[2017-07-27 13:21] LABS: ABG PCO2 38.7 mmHg (35.0-45.0)
[2017-07-27 13:22] LABS: ABG ALLEN TEST POSITIVE; ABG BASE EXCESS 1.8
[2017-07-27] MEDS ORDERED: D5 1/2NS 1000ml IV ONE (16:51)
[2017-07-27] MEDS: HYDROmorphone 4mg tab ORAL PRN (20:47)
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
[2017-07-27 21:52] LABS: HEMOGLOBIN A1C 5.2 % (< 6.0)
[2017-07-27 22:28] LABS: THYROID STIMULATING HORMONE 1.59 uIU/mL (0.300-4.500)
[2017-07-27] MEDS: Zolpidem 5mg tab ORAL PRN (22:41)
[2017-07-28 00:30] VITALS: BP 124/85
[2017-07-28] MEDS: HYDROmorphone 4mg tab ORAL PRN ×2 (01:13→23:45)
--- NOTE | 2017-07-28 02:00 | Progress Note ---
DATE: 07/27/2017 SUBJECTIVE: The patient had a CT scan of his right leg, which was ordered as well as other studies of his pelvis. He had no issues overnight. OBJECTIVE: GENERAL: The patient is alert, but somewhat confused. EXTREMITIES: The patient has moderate discomfort in the left leg as well as right. DIAGNOSTIC DATA: AP pelvis was reviewed. It showed appears to be a left pubic rami fracture with extension into the superior acetabulum. CT scan of the right knee shows depressed lateral tibial plateau fracture with evidence of medial and posterolateral chondral damage. DISCUSSION: At this point, he does have depressed lateral tibial plateau fracture. I have discussed the possibility of having open reduction and internal fixation of the fracture, however, I think given that he has pretty advanced arthritis medially, what I will recommend is probably just letting the fracture heal, see how he does clinically. If he still has pain, then conversion or treatment with a full knee replacement would be most consistent way to address all of his pathology. Given that he has osteoporosis, weak bone and is somewhat noncompliant, I think operative intervention to fix this tibial plateau would be detrimental to the patient. At this point, I think it is more reasonable that the fracture heal and then if he has significant discomfort or pain, then consideration for total knee arthroplasty to address not only the fracture but the pre-existing advanced arthritis in his knee would be most appropriate treatment. This would prevent us from having to do two additional surgeries, one to fix the tibial plateau in hopes that it heals and then remove the hardware in the future, then a full knee replacement could be done. Therefore, we will make him nonweightbearing for six weeks[address] place the right knee in a knee immobilizer. I will follow him as an outpatient. Ronaldo Day M.D. DR: Ryan JOB#: [id number] CC: Sudhir Schmitt D.O.
[2017-07-28] MEDS: LORazepam Inj 2mg/ml 1ml IV PRN (02:54)
[2017-07-28 04:00] VITALS: BP 117/61
[2017-07-28] MEDS: D5 1/2NS 1,000 ML IV SCH (05:00)
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
[2017-07-28 06:50] LABS: BASOPHILS % (AUTO) 0.8 % (0.0-2.0); LYMPHOCYTES % (AUTO) 24.2 % (20.0-45.0); MEAN CORPUSCULAR HEMOGLOBIN 30.4 PG (27.0-31.0); MEAN CORPUSCULAR HGB CONC 33.8 G/DL (32.0-36.0); MEAN CORPUSCULAR VOLUME 90 FL (80-99); MEAN PLATELET VOLUME 6.5 FL (6.5-10.1); MONOCYTES % (AUTO) 12.5 % (1.0-10.0); NEUTROPHILS % (AUTO) 59.5 % (45.0-75.0); PLATELET COUNT 136 K/UL (150-450); RED BLOOD COUNT 3.27 M/UL (4.70-6.10); RED CELL DISTRIBUTION WIDTH 13.7 % (11.6-14.8); WHITE BLOOD COUNT 8.4 K/UL (4.8-10.8)
[2017-07-28 07:22] LABS: ANION GAP 10 (5-15); CALCIUM 8.9 mg/dL (8.6-10.2); CARBON DIOXIDE 28 mEQ/L (20-30); CHLORIDE 99 mEQ/L (98-107); GLOMERULAR FILTRATION RATE > 60 mL/min (>60); HEMOLYSIS 0; POTASSIUM 4.5 mEQ/L (3.4-4.9); SODIUM 137 mEQ/L (135-145)
[2017-07-28 07:34] VITALS: BP 111/59
[2017-07-28] MEDS: Heparin 5000 units/ml inj SUBQ SCH ×2 (09:00→21:11)
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
[2017-07-28] MEDS: Docusate 100mg cap ORAL SCH (09:05)
--- NOTE | 2017-07-28 11:59 | General Progress Note ---
Assessment/Plan Problem List: (1) Intractable pain ICD Codes: R52 - Pain, unspecified SNOMED: 90485850 (2) Hypertension ICD Codes: I10 - Essential (primary) hypertension SNOMED: 06839380 (3) Pubic ramus fracture ICD Codes: S32.599A - Other specified fracture of unspecified pubis, initial encounter for closed fracture SNOMED: 61250809 Qualifiers: Qualified Codes: S32.592A - Other specified fracture of left pubis, initial encounter for closed fracture (4) Fracture of right knee region SNOMED: 04638075 Status: stable, progressing, tolerating diet Assessment/Plan ot pt diet pain control dc to snf Subjective Constitutional: Reports: weakness Allergies: Coded Allergies: No Known Allergies (Unverified , 07/24/17) All Systems: reviewed and negative except above Subjective calm in bed Objective Last 24 Hour Vital Signs Date Time Temp Pulse Resp B/P (MAP) Pulse Ox O2 Delivery O2 Flow Rate FiO2 07/28/17 07:34 97.9 76 20 111/59 96 Room Air 07/28/17 06:12 117/61 07/28/17 04:00 97.7 82 18 117/61 99 Room Air 07/28/17 02:53 124/85 07/28/17 00:30 98.5 101 18 124/85 97 Room Air 07/27/17 20:15 100.1 94 24 104/66 98 Room Air 07/27/17 17:16 103/66 07/27/17 16:00 98.6 99 17 103/66 94 Room Air 07/27/17 13:18 97.2 100 17 128/104 98 Room Air 07/27/17 13:07 62 16 101/70 96 Room Air 07/27/17 12:00 117/69 07/27/17 12:00 98.4 80 19 117/69 95 Room Air Laboratory Tests 07/27/17 13:15: Arterial Blood pH 7.440, Arterial Blood Partial Pressure CO2 38.7, Arterial Blood Partial Pressure O2 522.7H, Arterial Blood HCO3 25.9, Arterial Blood Oxygen Saturation 99.1H, Arterial Blood Base Excess 1.8, Ramon Test Positive 07/27/17 21:15: Erythrocyte Sedimentation Rate 42H, Hemoglobin A1c 5.2, Vitamin B12 Level 310, Vitamin D 25-Hydroxy [Pending], 25-Hydroxy Vitamin D2 [Pending], 25-Hydroxy Vitamin D3 [Pending], Folate [Pending], Thyroid Stimulating Hormone (TSH) 1.590 , Rapid Plasma Reagin [Pending] 07/28/17 02:50: Urine Opiates Screen PositiveH, Urine Barbiturates Screen Negative, Phencyclidine (PCP) Screen Negative, Urine Amphetamines Screen Negative, Urine Benzodiazepines Screen PositiveH, Urine Cocaine Screen Negative, Urine Marijuana (THC) Screen Negative 07/28/17 04:55: White Blood Count 8.4, Red Blood Count 3.27L, Hemoglobin 9.9L, Hematocrit 29.4L , Mean Corpuscular Volume 90, Mean Corpuscular Hemoglobin 30.4, Mean Corpuscular Hemoglobin Concent 33.8, Red Cell Distribution Width 13.7, Platelet Count 136L, Mean Platelet Volume 6.5, Neutrophils (%) (Auto) 59.5, Lymphocytes ( %) (Auto) 24.2, Monocytes (%) (Auto) 12.5H, Eosinophils (%) (Auto) 3.0, Basophils (%) (Auto) 0.8, Sodium Level 137, Potassium Level 4.5, Chloride Level 99, Carbon Dioxide Level 28, Anion Gap 10, Blood Urea Nitrogen 22, Creatinine 1.0, Estimat Glomerular Filtration Rate > 60, Glucose Level 114H, Calcium Level 8.9 Height (Feet): 5 Height (Inches): 7.00 Weight (Pounds): 140 General Appearance: lethargic EENT: normal ENT inspection Neck: normal alignment Cardiovascular: normal peripheral pulses, normal rate, regular rhythm Respiratory/Chest: chest wall non-tender, lungs clear, normal breath sounds Abdomen: normal bowel sounds, non tender, soft Extremities: normal inspection Edema: no edema noted Arm (L), no edema noted Arm (R), no edema noted Leg (L), no edema noted Leg (R), no edema noted Pedal (L), no edema noted Pedal (R), no edema noted Generalized Neurologic: motor weakness Skin: normal pigmentation, warm/dry GENIE PALACIOS Jul 28, 2017 11:59
[2017-07-28 12:10] VITALS: BP 127/79
[2017-07-28 15:48] VITALS: BP 99/56
--- NOTE | 2017-07-28 16:55 | General Progress Note ---
Assessment/Plan Assessment/Plan (1) Intractable pain (2) Fracture of right knee region (3) Pubic ramus fracture (4) H/o Polysubstance abuse Pt will be continued on Methadone and Neurontin Dilaudid will be reduced to 2mg PO 1 tab Q4H PRN severe pain hold for oversedation. D/w Dr. Clay and he concurred. Subjective Date patient seen: Jul 28, 2017 Time patient seen: 04:45 - am Allergies: Coded Allergies: No Known Allergies (Unverified , 07/24/17) Subjective REVIEW OF SYSTEMS: Denies rash, fever, chills, sweating, dizziness, drowsiness, blurred vision, sore throat, or change in his weight. No shortness of breath, chest pain, palpitations, or cough. No nausea, vomiting, diarrhea, or blood in the stool or urine. No bowel or bladder incontinence. No dysuria. He complains of right knee pain and pelvic pain. SUBJECTIVE: Pt is in bed no signs of distress or pain. Has had his methadone which nurse repots has helped with the pain. He has used one dose of Dilaudid. Objective Last 24 Hour Vital Signs Date Time Temp Pulse Resp B/P (MAP) Pulse Ox O2 Delivery O2 Flow Rate FiO2 07/28/17 15:48 98.1 73 19 99/56 98 Room Air 07/28/17 12:11 127/79 07/28/17 12:10 98.0 86 18 127/79 99 Room Air 07/28/17 07:34 97.9 76 20 111/59 96 Room Air 07/28/17 06:12 117/61 07/28/17 04:00 97.7 82 18 117/61 99 Room Air 07/28/17 02:53 124/85 07/28/17 00:30 98.5 101 18 124/85 97 Room Air 07/27/17 20:15 100.1 94 24 104/66 98 Room Air 07/27/17 17:16 103/66 Intake and Output 07/28/17 07/29/17 19:00 07:00 Intake Total 200 ml Balance 200 ml Intake Oral 200 ml # Voids 1 Laboratory Tests 07/27/17 21:15: Erythrocyte Sedimentation Rate 42H, Hemoglobin A1c 5.2, Vitamin B12 Level 310, Vitamin D 25-Hydroxy [Pending], 25-Hydroxy Vitamin D2 [Pending], 25-Hydroxy Vitamin D3 [Pending], Folate [Pending], Thyroid Stimulating Hormone (TSH) 1.590 , Rapid Plasma Reagin [Pending] 07/28/17 02:50: Urine Opiates Screen PositiveH, Urine Barbiturates Screen Negative, Phencyclidine (PCP) Screen Negative, Urine Amphetamines Screen Negative, Urine Benzodiazepines Screen PositiveH, Urine Cocaine Screen Negative, Urine Marijuana (THC) Screen Negative 07/28/17 04:55: White Blood Count 8.4, Red Blood Count 3.27L, Hemoglobin 9.9L, Hematocrit 29.4L , Mean Corpuscular Volume 90, Mean Corpuscular Hemoglobin 30.4, Mean Corpuscular Hemoglobin Concent 33.8, Red Cell Distribution Width 13.7, Platelet Count 136L, Mean Platelet Volume 6.5, Neutrophils (%) (Auto) 59.5, Lymphocytes ( %) (Auto) 24.2, Monocytes (%) (Auto) 12.5H, Eosinophils (%) (Auto) 3.0, Basophils (%) (Auto) 0.8, Sodium Level 137, Potassium Level 4.5, Chloride Level 99, Carbon Dioxide Level 28, Anion Gap 10, Blood Urea Nitrogen 22, Creatinine 1.0, Estimat Glomerular Filtration Rate > 60, Glucose Level 114H, Calcium Level 8.9 Height (Feet): 5 Height (Inches): 7.00 Weight (Pounds): 140 Objective GENERAL: Alert, awake, and oriented. HEENT: PERRLA. NECK: Range of motion is full in all directions. No tenderness to paracervical muscles. No adenopathy. LUNGS: Decreased breath sounds bilaterally. ABDOMEN: Benign. BACK: Range of motion is decreased in flexion and extension with tenderness to paraspinal muscles. No tenderness to trapezius or rhomboid muscles. EXTREMITIES: Lower extremity range of motion is decreased due to the patient's clinical condition. Motor is intact. No cyanosis. No clubbing. NEURO: No changes. GILMA BANUELOS Jul 28, 2017 16:55
[2017-07-28 20:00] VITALS: BP 114/71
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
--- NOTE | 2017-07-28 23:45 | Electroencephalogram ---
DATE OF PROCEDURE: 07/28/2017 HISTORY: This EEG was performed on a 61-year-old gentleman with a history of polysubstance abuse, who was noted to have a seizure. The purpose of this EEG was to better delineate the type of seizure disorder. TECHNICAL NOTE: This EEG was performed on 32 channel [employer] with electrodes placed on the scalp according to the international 10-20 system. Mrdiy-du-lskef and omrka-ds-net montages were used. The EEG was technically satisfactory and was performed in the awake, drowsy and sleep states. OBSERVATIONS: During wakefulness, the background activity consisted of 8.5 to 9 hertz posteriorly predominant alpha activity with some intermixed theta frequencies. Drowsiness was characterized by slowing of the background in 5 to 6 hertz theta range. Stage 2 sleep was characterized by further slowing of the background in the delta and theta range, the presence of vertex waves, and 14 hertz sleep spindles. Photic stimulation was performed at various different frequencies and produced no abnormalities. No focal abnormalities or epileptiform discharges were seen. IMPRESSION: This is an abnormal EEG characterized by an unusually large amount of intermixed theta activity seen during the awake state. COMMENT: The study is consistent with an encephalopathy of a mild degree. Please note that no interictal discharges were seen during this EEG. Inder Marti M.D. DR: KT JOB#: [id number] CC:
[2017-07-29] VITALS: BP 103/66
[2017-07-29] MEDS: D5 1/2NS 1,000 ML IV SCH (01:15)
[2017-07-29] MEDS: HYDROmorphone 4mg tab ORAL PRN (03:20)
[2017-07-29 04:00] VITALS: BP 118/71
[2017-07-29 08:00] VITALS: BP 111/69
[2017-07-29] MEDS: Heparin 5000 units/ml inj SUBQ SCH (09:00)
[2017-07-29] MEDS ORDERED: Vitamin B12 1000mcg/ml Inj SUBQ SCH (09:00)
[2017-07-29] MEDS: Docusate 100mg cap ORAL SCH (09:46)
--- NOTE | 2017-07-29 10:50 | General Progress Note ---
Assessment/Plan Assessment/Plan (1) Intractable pain (2) Fracture of right knee region (3) Pubic ramus fracture (4) H/o Polysubstance abuse Pt will be continued on Methadone Dilaudid and Neurontin Rx for Methadone Liq and Dilaudid was written in anticipation for discharge. D/w Dr. Clay and he concurred. Subjective Date patient seen: Jul 29, 2017 Time patient seen: 10:00 - am Allergies: Coded Allergies: No Known Allergies (Unverified , 07/24/17) Subjective REVIEW OF SYSTEMS: Denies rash, fever, chills, sweating, dizziness, drowsiness, blurred vision, sore throat, or change in his weight. No shortness of breath, chest pain, palpitations, or cough. No nausea, vomiting, diarrhea, or blood in the stool or urine. No bowel or bladder incontinence. No dysuria. He complains of right knee pain and pelvic pain. SUBJECTIVE: Pt is in no signs of pain or distress at this time. D/w nurse and has received 2 doses of Dilaudid last night and the Methadone this morning. waiting for transfer to SNF. Objective Last 24 Hour Vital Signs Date Time Temp Pulse Resp B/P (MAP) Pulse Ox O2 Delivery O2 Flow Rate FiO2 07/29/17 08:00 98.0 86 18 111/69 95 Room Air 07/29/17 06:08 118/71 07/29/17 04:00 98.6 90 19 118/71 99 Room Air 07/29/17 00:00 98.7 82 19 103/66 98 Room Air 07/29/17 00:00 103/66 07/28/17 20:00 97.5 82 18 114/71 97 Room Air 07/28/17 18:00 99/56 07/28/17 15:48 98.1 73 19 99/56 98 Room Air 07/28/17 12:11 127/79 07/28/17 12:10 98.0 86 18 127/79 99 Room Air Height (Feet): 5 Height (Inches): 7.00 Weight (Pounds): 140 Objective GENERAL: Alert, awake, and oriented. HEENT: PERRLA. NECK: Range of motion is full in all directions. No tenderness to paracervical muscles. No adenopathy. LUNGS: Decreased breath sounds bilaterally. ABDOMEN: Benign. BACK: Range of motion is decreased in flexion and extension with tenderness to paraspinal muscles. No tenderness to trapezius or rhomboid muscles. EXTREMITIES: Lower extremity range of motion is decreased due to the patient's clinical condition. Motor is intact. No cyanosis. No clubbing. NEURO: No changes. GILMA BANUELOS Jul 29, 2017 10:50
[2017-07-29] MEDS ORDERED: HYDROmorphone 2mg tab ORAL PRN (11:30)
[2017-07-29 13:00] VITALS: BP 109/68
--- NOTE | 2017-07-29 13:06 | General Progress Note ---
Assessment/Plan Problem List: (1) Intractable pain ICD Codes: R52 - Pain, unspecified SNOMED: 18672692 (2) Hypertension ICD Codes: I10 - Essential (primary) hypertension SNOMED: 46884229 (3) Pubic ramus fracture ICD Codes: S32.599A - Other specified fracture of unspecified pubis, initial encounter for closed fracture SNOMED: 85172474 Qualifiers: Qualified Codes: S32.592A - Other specified fracture of left pubis, initial encounter for closed fracture (4) Fracture of right knee region SNOMED: 91032316 Status: stable, progressing, tolerating diet Assessment/Plan ot pt diet pain control cbc bmp am awaitng wc to dc to snf Subjective Constitutional: Reports: weakness Allergies: Coded Allergies: No Known Allergies (Unverified , 07/24/17) All Systems: reviewed and negative except above Subjective calm in bed Objective Last 24 Hour Vital Signs Date Time Temp Pulse Resp B/P (MAP) Pulse Ox O2 Delivery O2 Flow Rate FiO2 07/29/17 08:00 98.0 86 18 111/69 95 Room Air 07/29/17 06:08 118/71 07/29/17 04:00 98.6 90 19 118/71 99 Room Air 07/29/17 00:00 98.7 82 19 103/66 98 Room Air 07/29/17 00:00 103/66 07/28/17 20:00 97.5 82 18 114/71 97 Room Air 07/28/17 18:00 99/56 07/28/17 15:48 98.1 73 19 99/56 98 Room Air Intake and Output 07/29/17 07/30/17 19:00 07:00 Intake Total 250 ml Output Total 600 ml Balance -350 ml Intake Oral 250 ml Output Urine Total 600 ml Height (Feet): 5 Height (Inches): 7.00 Weight (Pounds): 140 General Appearance: lethargic EENT: normal ENT inspection Neck: normal alignment Cardiovascular: normal peripheral pulses, normal rate, regular rhythm Respiratory/Chest: chest wall non-tender, lungs clear, normal breath sounds Abdomen: normal bowel sounds, non tender, soft GENIE PALACIOS Jul 29, 2017 13:06
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
[2017-07-29 16:00] VITALS: BP 101/57
[2017-07-29] MEDS ORDERED: D5 1/2NS 1000ml IV ONE (19:09)
[2017-07-31 19:04] LABS: VITAMIN D 25-OH TOTAL 25 ng/mL (.)
--- NOTE | 2017-08-01 22:46 | Discharge Summary ---
Discharge Summary Hospital Course Date of Admission Jul 24, 2017 at 14:36 Date of Discharge Jul 29, 2017 at 19:10 Admitting Diagnosis intractable pain HPI Jacoby Saucedo is a 61 year old male who was admitted on Jul 24, 2017 at 14:36 for Intractable Pain Hospital Course dc summary #[id number] Discharge Condition Upon Discharge: stable Discharge Disposition Patient was discharged to SNF Discharge Diagnoses: Discharge Instructions Discharge Instructions Special Instructions I have been assigned to complete a D/C Summary on this account. I was not involved in the patient management Lissette Bradshaw NP (Vanchtein) Aug 01, 2017 22:46
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
== END 2017-07-29 19:10 | DRG 947 ==
LOC: EDBD 11:43 → EMR 12:42 → EDBEDREQ 14:24 → 3E 14:36
DX: G89.11 Acute pain due to trauma (principal); G93.40 Encephalopathy, unspecified; R56.9 Unspecified convulsions; F11.20 Opioid dependence, uncomplicated; F20.0 Paranoid schizophrenia; I10 Essential (primary) hypertension; M81.0 Age-related osteoporosis without current pathological fracture; D64.9 Anemia, unspecified; H40.9 Unspecified glaucoma; S82.141D Displaced bicondylar fracture of right tibia, subsequent encounter for closed fracture with routine healing; S32.810D Multiple fractures of pelvis with stable disruption of pelvic ring, subsequent encounter for fracture with routine healing; S32.402D Unspecified fracture of left acetabulum, subsequent encounter for fracture with routine healing; F19.10 Other psychoactive substance abuse, uncomplicated; E53.8 Deficiency of other specified B group vitamins; F10.20 Alcohol dependence, uncomplicated; J44.9 Chronic obstructive pulmonary disease, unspecified; Z87.891 Personal history of nicotine dependence; Z90.01 Acquired absence of eye; V09.9XXD Pedestrian injured in unspecified transport accident, subsequent encounter; E87.6 Hypokalemia; M17.11 Unilateral primary osteoarthritis, right knee; S82.831D Other fracture of upper and lower end of right fibula, subsequent encounter for closed fracture with routine healing
CPT/HCPCS: 36415; 36600; 70450; 72170; 80048; 80053; 80300; 82306; 82607; 82746; 82803; 82962; 83036; 84443; 85025; 85651; 86592; 87081; 93005; 95819; 99285; J8499

== ENCOUNTER 2017-08-13 18:43 | Inpatient (IN) | payer MEDICARE, MEDICAID ==
[~2017-08-13] VITALS: Ht 182.9 cm; Wt 63.5 kg
[~2017-08-13 18:43] MED LIST: CATAPRES0.1 MG ORAL; COLACE100 MG ORAL; NORCO 10-325 T1 EACH ORAL
[2017-08-13 19:00] VITALS: BP 152/86
[2017-08-13] MEDS ORDERED: Norco 10mg/325mg tab ORAL PRN (19:00)
[2017-08-13] MEDS ORDERED: Mylanta II UD 30ml ORAL PRN (19:00)
[2017-08-13] MEDS ORDERED: Morphine Sulfate 2mg/ml Inj IVP PRN (19:00)
[2017-08-13] MEDS ORDERED: LORazepam Inj 2mg/ml 1ml IV PRN (19:00)
[2017-08-13] MEDS ORDERED: HYDROmorphone 1mg/ml Carpuject IVP ONE (19:00)
[2017-08-13] MEDS ORDERED: Morphine Sulfate 4mg/ml Inj IVP PRN (19:00)
[2017-08-13 19:33] LABS: BASOPHILS % (AUTO) 1.5 % (0.0-2.0); EOSINOPHILS % (AUTO) 9.7 % (0.0-3.0); LYMPHOCYTES % (AUTO) 31.8 % (20.0-45.0); MEAN CORPUSCULAR HEMOGLOBIN 30.8 PG (27.0-31.0); MEAN CORPUSCULAR HGB CONC 33.4 G/DL (32.0-36.0); MEAN CORPUSCULAR VOLUME 92 FL (80-99); MEAN PLATELET VOLUME 8.2 FL (6.5-10.1); MONOCYTES % (AUTO) 9.1 % (1.0-10.0); PLATELET COUNT 104 K/UL (150-450); RED BLOOD COUNT 4.01 M/UL (4.70-6.10); RED CELL DISTRIBUTION WIDTH 13.9 % (11.6-14.8); WHITE BLOOD COUNT 5.4 K/UL (4.8-10.8)
[2017-08-13 19:46] LABS: APPEARANCE,URINE CLEAR; KETONES,URINE NEGATIVE (NEGATIVE); LEUKOCYTE ESTERASE ,URINE NEGATIVE (NEGATIVE); NITRITE,URINE NEGATIVE (NEGATIVE); PH,URINE 6 (4.5-8.0); PROTEIN,URINE NEGATIVE (NEGATIVE); UROBILINOGEN,URINE NORMAL MG/DL (0.0-1.0)
[2017-08-13 19:51] LABS: ALANINE AMINOTRANSFERASE 13 U/L (3-41); ANION GAP 11 (5-15); ASPARTATE AMINO TRANSFERASE 27 U/L (5-40); CALCIUM 9.2 mg/dL (8.6-10.2); CARBON DIOXIDE 29 mEQ/L (20-30); CHLORIDE 99 mEQ/L (98-107); GLOMERULAR FILTRATION RATE > 60 mL/min (>60); HEMOLYSIS 66; POTASSIUM 4.5 mEQ/L (3.4-4.9); SODIUM 139 mEQ/L (135-145); TOTAL PROTEIN 7.3 g/dL (6.6-8.7)
[2017-08-13] MEDS ORDERED: Miralax 17gm pkt ORAL PRN (21:00)
[2017-08-13] MEDS: Heparin 5000 units/ml inj SUBQ SCH (21:00)
[2017-08-13] MEDS ORDERED: Zolpidem 5mg tab ORAL PRN (21:00)
[2017-08-13 21:12] VITALS: BP 116/63
[2017-08-13] MEDS ORDERED: NKM (21:19)
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
[2017-08-14] VITALS (7 sets, daily range): BP systolic 93–156; BP diastolic 51–84
[2017-08-14 07:43] LABS: BASOPHILS % (AUTO) 0.8 % (0.0-2.0); EOSINOPHILS % (AUTO) 9.2 % (0.0-3.0); LYMPHOCYTES % (AUTO) 26.5 % (20.0-45.0); MEAN CORPUSCULAR HEMOGLOBIN 29.3 PG (27.0-31.0); MEAN CORPUSCULAR HGB CONC 32.2 G/DL (32.0-36.0); MEAN CORPUSCULAR VOLUME 91 FL (80-99); MONOCYTES % (AUTO) 9.8 % (1.0-10.0); NEUTROPHILS % (AUTO) 53.8 % (45.0-75.0); PLATELET COUNT 105 K/UL (150-450); RED BLOOD COUNT 4.02 M/UL (4.70-6.10); RED CELL DISTRIBUTION WIDTH 13.9 % (11.6-14.8); WHITE BLOOD COUNT 4.7 K/UL (4.8-10.8)
[2017-08-14 08:28] LABS: ALANINE AMINOTRANSFERASE 11 U/L (3-41); ANION GAP 10 (5-15); ASPARTATE AMINO TRANSFERASE 18 U/L (5-40); CALCIUM 9.5 mg/dL (8.6-10.2); CARBON DIOXIDE 30 mEQ/L (20-30); CHLORIDE 101 mEQ/L (98-107); CREATININE 0.9 mg/dL (0.7-1.2); GLOMERULAR FILTRATION RATE > 60 mL/min (>60); HEMOLYSIS 0; POTASSIUM 4.6 mEQ/L (3.4-4.9); SODIUM 141 mEQ/L (135-145); TOTAL PROTEIN 7.2 g/dL (6.6-8.7)
[2017-08-14] MEDS ORDERED: DILAUDID2 MG ORAL (08:52)
[2017-08-14] MEDS ORDERED: METHADONE H5 MG/5 M1 PO (08:52)
[2017-08-14] MEDS ORDERED: Docusate 100mg cap ORAL SCH (09:00)
[2017-08-14] MEDS: Heparin 5000 units/ml inj SUBQ SCH ×2 (09:00→20:06)
--- NOTE | 2017-08-14 12:43 | General Progress Note ---
Assessment/Plan Assessment/Plan (1) Intractable pain (2) Fracture of right knee region (3) Pubic ramus fracture (4) H/o Polysubstance abuse Pt will be continued on Methadone and will be started on Dilaudid 2mg PO 1 tab Q4H PRN severe pain D/w Dr. Clay and he concurred. Subjective Date patient seen: Aug 14, 2017 Time patient seen: 11:30 - am Allergies: Coded Allergies: No Known Allergies (Unverified , 07/24/17) Subjective REVIEW OF SYSTEMS: Denies rash, fever, chills, sweating, dizziness, drowsiness, blurred vision, sore throat, or change in his weight. No shortness of breath, chest pain, palpitations, or cough. No nausea, vomiting, diarrhea, or blood in the stool or urine. No bowel or bladder incontinence. No dysuria. He complains of right knee pain and pelvic pain. SUBJECTIVE: Pt is a known patient from prior admission and has been admitted under the care of Dr. Schmitt with c/o pain in the Right LE. He has been started on Methadone and needs pain relief. Objective Last 24 Hour Vital Signs Date Time Temp Pulse Resp B/P (MAP) Pulse Ox O2 Delivery O2 Flow Rate FiO2 08/14/17 12:15 97.6 80 21 111/68 96 Room Air 08/14/17 08:15 97.6 64 21 108/58 99 Room Air 08/14/17 05:58 155/81 08/14/17 04:00 97.4 58 20 156/84 98 Room Air 08/14/17 00:00 97.4 65 20 93/51 100 Room Air 08/14/17 00:00 93/51 08/13/17 22:07 97.2 56 18 116/63 100 Room Air 08/13/17 21:12 97.2 56 18 116/63 100 Room Air 08/13/17 19:00 97.2 16 152/86 100 Room Air 08/13/17 18:36 97.2 60 16 152/86 100 Room Air Intake and Output 08/14/17 08/15/17 19:00 07:00 Intake Total 240 ml Balance 240 ml Intake Oral 240 ml # Bowel Movements 1 Laboratory Tests 08/13/17 19:00: Urine Color Yellow, Urine Appearance Clear, Urine pH 6, Urine Specific [place] 1.020, Urine Protein Negative, Urine Glucose (UA) Negative, Urine Ketones Negative, Urine Occult Blood Negative, Urine Nitrite Negative, Urine Bilirubin Negative, Urine Urobilinogen Normal, Urine Leukocyte Esterase Negative 08/13/17 19:10: White Blood Count 5.4, Red Blood Count 4.01L, Hemoglobin 12.4L, Hematocrit 37.0L , Mean Corpuscular Volume 92, Mean Corpuscular Hemoglobin 30.8, Mean Corpuscular Hemoglobin Concent 33.4, Red Cell Distribution Width 13.9, Platelet Count 104L, Mean Platelet Volume 8.2, Neutrophils (%) (Auto) 48.0, Lymphocytes ( %) (Auto) 31.8, Monocytes (%) (Auto) 9.1, Eosinophils (%) (Auto) 9.7H, Basophils (%) (Auto) 1.5, Sodium Level 139, Potassium Level 4.5, Chloride Level 99, Carbon Dioxide Level 29, Anion Gap 11, Blood Urea Nitrogen 17, Creatinine 1.0, Estimat Glomerular Filtration Rate > 60, Glucose Level 82, Calcium Level 9.2, Total Bilirubin 0.5, Aspartate Amino Transf (AST/SGOT) 27, Alanine Aminotransferase (ALT/SGPT) 13, Alkaline Phosphatase 174H, Total Protein 7.3, Albumin 3.7, Globulin 3.6, Albumin/Globulin Ratio 1.0 08/14/17 06:50: White Blood Count 4.7L, Red Blood Count 4.02L, Hemoglobin 11.8L, Hematocrit 36.6L, Mean Corpuscular Volume 91, Mean Corpuscular Hemoglobin 29.3, Mean Corpuscular Hemoglobin Concent 32.2, Red Cell Distribution Width 13.9, Platelet Count 105L, Mean Platelet Volume 9.0, Neutrophils (%) (Auto) 53.8, Lymphocytes ( %) (Auto) 26.5, Monocytes (%) (Auto) 9.8, Eosinophils (%) (Auto) 9.2H, Basophils (%) (Auto) 0.8, Sodium Level 141, Potassium Level 4.6, Chloride Level 101, Carbon Dioxide Level 30, Anion Gap 10, Blood Urea Nitrogen 18, Creatinine 0.9, Estimat Glomerular Filtration Rate > 60, Glucose Level 97, Calcium Level 9.5, Total Bilirubin 0.6, Aspartate Amino Transf (AST/SGOT) 18, Alanine Aminotransferase (ALT/SGPT) 11, Alkaline Phosphatase 176H, Total Protein 7.2, Albumin 3.6, Globulin 3.6, Albumin/Globulin Ratio 1.0, Thyroid Stimulating Hormone (TSH) 2.730 Height (Feet): 6 Height (Inches): 0.00 Weight (Pounds): 140 Objective GENERAL: Alert, awake, and oriented. HEENT: PERRLA. NECK: Range of motion is full in all directions. No tenderness to paracervical muscles. No adenopathy. LUNGS: Decreased breath sounds bilaterally. ABDOMEN: Benign. BACK: Range of motion is decreased in flexion and extension with tenderness to paraspinal muscles. No tenderness to trapezius or rhomboid muscles. EXTREMITIES: Lower extremity range of motion is decreased due to the patient's clinical condition. Motor is intact. No cyanosis. No clubbing. NEURO: No changes. GILMA BANUELOS Aug 14, 2017 12:43
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
[2017-08-14] MEDS: Docusate 100mg cap ORAL SCH (17:24)
--- NOTE | 2017-08-14 21:15 | History and Physical Report ---
DATE OF ADMISSION: 08/13/2017 TIME SEEN: At 8 a.m. CONSULTANTS: 1. Didi Wheeler M.D. 2. Prakash Clay M.D. 3. Taya Lane M.D. 4. Dr. Day. Chief complaint: Intractable pain, knee and hip pain and right eye blind, weakness. Brief History: This is a 61-year-old male from [facility] presents to [place] ER last night with intractable pain in knee and hips. He does have history of chronic pain and is on methadone, currently pain became unbearable, he came to the ER, diagnosed with the above and admitted to the medical floor for further treatment, currently slightly agitated in room, complaining of severe pain in hip and knee, 7-8/10, no complaints otherwise. Past Medical History: Intractable pain, chronic pain, right eye blind, weakness. PAST SURGICAL HISTORY: Abdominal surgery and right eye. Medications: Colace, Klonopin, methadone, Catapres, heparin, MiraLAX, Ambien, Tylenol, Climax, morphine, Zofran, Ativan, Mylanta, Dextrose. ALLERGIES: Denies. Social History: Positive smoking. No alcohol. No intravenous drug abuse. FAMILY HISTORY: Noncontributory. Review Of Systems: No chest pain. No shortness of breath. No nausea, vomiting, or diarrhea. PHYSICAL EXAMINATION: GENERAL: Slightly agitated in room, oriented x2, no acute distress. Vital Signs: Temperature 97 degrees, pulse 54, respirations 21, and blood pressure 108/58. CARDIOVASCULAR: No murmurs. LUNGS: Distant and clear. Abdomen: Bowel sounds are positive. Soft, nontender, and nondistended. EXTREMITIES: No cyanosis, clubbing, or edema. Neurological: The patient moves all extremities slightly weak. Right eye blind. Laboratory And Diagnostic Data: White count 4.7, hemoglobin and hematocrit 11.8 and 36, platelets 105,000. BMP shows alkaline phosphatase 176, otherwise urinalysis is negative. ASSESSMENT: 1. Intractable pain. 2. Chronic pain. 3. Knee and hip pain. 4. Anemia. 5. Right eye blind. 6. Weakness. 7. Pancytopenia. PLAN: 1. Continue premedications. 2. OT/PT. 3. Dietary followup. 4. Pain control. 5. CBC and BMP in the morning. 6. Dr. Wheeler, Dr. Clay, Dr. Lane, and Dr. Day to consult. 7. We will continue to follow this patient medically. Sudhir Schmitt D.O. DR: Ryan JOB#: [id number] CC:
[2017-08-14] MEDS: HYDROmorphone 2mg tab ORAL PRN (22:20)
--- NOTE | 2017-08-14 23:15 | Consultation ---
DATE OF CONSULTATION: 08/14/2017 History of Present Illness: This is a 61-year-old male patient with intractable pain. He was admitted to the hospital at [facility] secondary to intractable pain, but also has seizures and hypertension. However, this patient has been having extreme agitation and irritability throughout the hospital course, high levels of anxiety, demanding, trying to leave AMA, seem to have poor insight into his medical condition so there was a psychiatric consultation requested to evaluate this patient. I saw him and assessed him at bedside. He is confused, disorganized, but mostly irritable because stated he is in pain and is very anxious. ALLERGIES: No known drug allergies. Social History: The patient is currently living in [facility], financially supported by [facility] and Medicare. Substance Abuse History: He stated he has history of opiate abuse, but seems to continued to demand high doses of opiate medication to control his pain. Psychiatric History: Endorses generalized anxiety and major depression. Mental Status Examination: This is a 61-year-old male with psychomotor agitation. Mood is irritable and agitated. Affect guarded and restricted. Thought process disorganized and illogical. He is depressed. Denies any suicidal or homicidal thoughts. Insight and judgement is poor. Plan: My plan for this patient, I am going to treat him with a medication regimen consisting of Cymbalta at a dose of 60 mg p.o. daily to treat his depression and anxiety and also provide pain prophylaxis I am going to add Cymbalta 60 mg daily in addition to that he also complains of neuropathic pain as well as his anxiety. For the control of his anxiety but at the same time help him with neuropathy, I am going to put this patient on Neurontin at a dose of 300 mg three times a day and encourage him to interact appropriately with staff and another patients. Continue to be followed by Psychiatry throughout his hospital course. Chart reviewed and discussed with staff. Seen and assessed at the bedside. I would like to thank, Dr. Sudhir Schmitt, for this interesting consultation. Taya Lane M.D. DR: DERECK JOB#: [id number] CC:
[2017-08-15 04:00] VITALS: BP 126/64
[2017-08-15] MEDS: Docusate 100mg cap ORAL SCH ×3 (04:30→17:54)
--- NOTE | 2017-08-15 04:45 | Consultation ---
DATE OF CONSULTATION: 08/14/2017 ORTHOPEDIC CONSULTATION REQUESTING PHYSICIAN: Sudhir Schmitt D.O. CHIEF COMPLAINT: Left hip and right knee pain. History Of Present Illness: The patient is a 61-year-old gentleman, who is well known to me, was seen approximately a couple of weeks ago, diagnosed with left nondisplaced pubic rami fracture as well as a right lateral tibial plateau fracture. The patient was taken to acute rehabilitation with instructions to maintain the right knee in knee immobilizer and get appropriate pain medications for the left hip. He was having uncontrollable pain therefore he was readmitted for pain management. PAST MEDICAL HISTORY: Reviewed from the intake chart. PAST SURGICAL HISTORY: Reviewed from the intake chart. MEDICATIONS: Reviewed from the intake chart. PHYSICAL EXAMINATION: Extremities: The patient is resting on the exam bed. He does have pain in the left pubic rami area. Right knee examination shows knee immobilizer is off. The patient does have pain in the lateral joint line. No significant effusion. Range of motion is 0 to about 60. ASSESSMENT: 1. Left pubic rami fracture (pelvic ring, lateral compression grade 2 fracture). 2. Right knee lateral tibial plateau fracture. Discussion: At this point, in terms of the left hip, this should heal with conservative treatment. The right knee looks little bit more complicated. He has a displaced lateral tibial plateau fracture, but given his comorbidities, there is concern that surgery would be somewhat complicated. At this point, we discussed treating him conservatively and then kind of see him how he does. Given that he always has arthritis in the right knee, if he has continued symptoms, then ultimately could be candidate for right total knee arthroplasty, would give more consistent result, however, the hope is that the fracture heals and given his comorbidities, we can avoid major surgery. Risks, limitations, expectations, and complications related to conservative treatment as well as the chance for posttraumatic arthritis and need for future surgery as to knee replacement discussed with the patient. He should get appropriate pain management. He should continue with the knee immobilizer in the right knee. The right leg he is nonweightbearing for a total of 6 weeks. In regards to the left leg, he can be weight bearing as tolerated. Ronaldo Day M.D. DR: SHAHRAM JOB#: [id number] CC:
[2017-08-15 06:45] LABS: BASOPHILS % (AUTO) 1.3 % (0.0-2.0); EOSINOPHILS % (AUTO) 11.3 % (0.0-3.0); LYMPHOCYTES % (AUTO) 26.3 % (20.0-45.0); MEAN CORPUSCULAR HEMOGLOBIN 29.8 PG (27.0-31.0); MEAN CORPUSCULAR HGB CONC 32.6 G/DL (32.0-36.0); MEAN CORPUSCULAR VOLUME 92 FL (80-99); MONOCYTES % (AUTO) 10.9 % (1.0-10.0); NEUTROPHILS % (AUTO) 50.3 % (45.0-75.0); PLATELET COUNT 115 K/UL (150-450); RED BLOOD COUNT 4.15 M/UL (4.70-6.10); RED CELL DISTRIBUTION WIDTH 13.7 % (11.6-14.8); WHITE BLOOD COUNT 4.8 K/UL (4.8-10.8)
[2017-08-15] MEDS ORDERED: Lactulose 20gm/30ml UDC ORAL PRN (07:00)
[2017-08-15 07:06] LABS: ANION GAP 10 (5-15); CALCIUM 11.3 mg/dL (8.6-10.2); CARBON DIOXIDE 30 mEQ/L (20-30); CHLORIDE 99 mEQ/L (98-107); CREATININE 0.9 mg/dL (0.7-1.2); GLOMERULAR FILTRATION RATE > 60 mL/min (>60); HEMOLYSIS 3; POTASSIUM 4.4 mEQ/L (3.4-4.9); SODIUM 139 mEQ/L (135-145)
[2017-08-15 08:00] VITALS: BP 126/75
--- NOTE | 2017-08-15 08:02 | General Progress Note ---
Assessment/Plan Assessment/Plan (1) Intractable pain (2) Fracture of right knee region (3) Pubic ramus fracture (4) H/o Polysubstance abuse Pt will be continued on Methadone and Dilaudid. We will discontinue the Morphine IV. D/w Dr. Clay and he concurred. Subjective Date patient seen: Aug 15, 2017 Time patient seen: 07:15 - am Allergies: Coded Allergies: No Known Allergies (Unverified , 07/24/17) Subjective REVIEW OF SYSTEMS: Denies rash, fever, chills, sweating, dizziness, drowsiness, blurred vision, sore throat, or change in his weight. No shortness of breath, chest pain, palpitations, or cough. No nausea, vomiting, diarrhea, or blood in the stool or urine. No bowel or bladder incontinence. No dysuria. He complains of right knee pain and pelvic pain. SUBJECTIVE: Pt a this time is resting and is in no signs of pain or distress. Pt has received his Methadone, and Dilaudid. Morphine was given as well as per medical billing coordinator. Objective Last 24 Hour Vital Signs Date Time Temp Pulse Resp B/P (MAP) Pulse Ox O2 Delivery O2 Flow Rate FiO2 08/15/17 05:40 129/73 08/15/17 04:00 97.5 60 20 126/64 100 Room Air 08/14/17 23:49 121/76 08/14/17 23:40 97.9 57 18 121/76 100 Room Air 08/14/17 19:55 97.9 65 18 128/62 98 Room Air 08/14/17 17:20 100/60 08/14/17 16:15 97.6 58 22 100/60 99 Room Air 08/14/17 12:15 97.6 80 21 111/68 96 Room Air 08/14/17 12:00 111/68 08/14/17 08:15 97.6 64 21 108/58 99 Room Air Laboratory Tests 08/15/17 05:20: White Blood Count 4.8, Red Blood Count 4.15L, Hemoglobin 12.4L, Hematocrit 38.0L , Mean Corpuscular Volume 92, Mean Corpuscular Hemoglobin 29.8, Mean Corpuscular Hemoglobin Concent 32.6, Red Cell Distribution Width 13.7, Platelet Count 115L, Mean Platelet Volume 8.0, Neutrophils (%) (Auto) 50.3, Lymphocytes ( %) (Auto) 26.3, Monocytes (%) (Auto) 10.9H, Eosinophils (%) (Auto) 11.3H, Basophils (%) (Auto) 1.3, Sodium Level 139, Potassium Level 4.4, Chloride Level 99, Carbon Dioxide Level 30, Anion Gap 10, Blood Urea Nitrogen 21, Creatinine 0.9, Estimat Glomerular Filtration Rate > 60, Glucose Level 95, Calcium Level 11.3H Height (Feet): 6 Height (Inches): 0.00 Weight (Pounds): 140 Objective GENERAL: Alert, awake, and oriented. HEENT: PERRLA. NECK: Range of motion is full in all directions. No tenderness to paracervical muscles. No adenopathy. LUNGS: Decreased breath sounds bilaterally. ABDOMEN: Benign. BACK: Range of motion is decreased in flexion and extension with tenderness to paraspinal muscles. No tenderness to trapezius or rhomboid muscles. EXTREMITIES: Lower extremity range of motion is decreased due to the patient's clinical condition. Motor is intact. No cyanosis. No clubbing. NEURO: No changes. GILMA BANUELOS Aug 15, 2017 08:02
[2017-08-15] MEDS ORDERED: DULoxetine 30mg cap ORAL SCH (09:00)
[2017-08-15] MEDS: Heparin 5000 units/ml inj SUBQ SCH ×2 (09:00→20:29)
[2017-08-15 12:00] VITALS: BP 115/65
--- NOTE | 2017-08-15 13:19 | General Progress Note ---
Assessment/Plan Problem List: (1) Chronic pain ICD Codes: G89.29 - Other chronic pain SNOMED: 85830719 (2) Pancytopenia ICD Codes: D61.818 - Other pancytopenia SNOMED: 493555559 (3) Hypertension ICD Codes: I10 - Essential (primary) hypertension SNOMED: 53485143 (4) Seizures ICD Codes: R56.9 - Unspecified convulsions SNOMED: 29933338 (5) Intractable pain ICD Codes: R52 - Pain, unspecified SNOMED: 79616223 Status: stable, progressing, tolerating diet Assessment/Plan otp t diet pain control psyc tx cbc bmp in am Subjective Constitutional: Reports: weakness Allergies: Coded Allergies: No Known Allergies (Unverified , 07/24/17) All Systems: reviewed and negative except above Subjective calm in bed sl gen pain Objective Last 24 Hour Vital Signs Date Time Temp Pulse Resp B/P (MAP) Pulse Ox O2 Delivery O2 Flow Rate FiO2 08/15/17 12:00 97.2 59 17 115/65 100 Room Air 08/15/17 08:00 97.0 51 17 126/75 96 Room Air 08/15/17 05:40 129/73 08/15/17 04:00 97.5 60 20 126/64 100 Room Air 08/14/17 23:49 121/76 08/14/17 23:40 97.9 57 18 121/76 100 Room Air 08/14/17 19:55 97.9 65 18 128/62 98 Room Air 08/14/17 17:20 100/60 08/14/17 16:15 97.6 58 22 100/60 99 Room Air Intake and Output 08/15/17 08/16/17 19:00 07:00 Intake Total 250 ml Balance 250 ml Intake Oral 250 ml # Voids 1 # Bowel Movements 1 Laboratory Tests 08/15/17 05:20: White Blood Count 4.8, Red Blood Count 4.15L, Hemoglobin 12.4L, Hematocrit 38.0L , Mean Corpuscular Volume 92, Mean Corpuscular Hemoglobin 29.8, Mean Corpuscular Hemoglobin Concent 32.6, Red Cell Distribution Width 13.7, Platelet Count 115L, Mean Platelet Volume 8.0, Neutrophils (%) (Auto) 50.3, Lymphocytes ( %) (Auto) 26.3, Monocytes (%) (Auto) 10.9H, Eosinophils (%) (Auto) 11.3H, Basophils (%) (Auto) 1.3, Sodium Level 139, Potassium Level 4.4, Chloride Level 99, Carbon Dioxide Level 30, Anion Gap 10, Blood Urea Nitrogen 21, Creatinine 0.9, Estimat Glomerular Filtration Rate > 60, Glucose Level 95, Calcium Level 11.3H Height (Feet): 6 Height (Inches): 0.00 Weight (Pounds): 140 General Appearance: alert EENT: normal ENT inspection Neck: normal alignment Cardiovascular: normal peripheral pulses, normal rate, regular rhythm Respiratory/Chest: chest wall non-tender, lungs clear, normal breath sounds Abdomen: normal bowel sounds, non tender, soft Extremities: normal inspection Edema: no edema noted Arm (L), no edema noted Arm (R), no edema noted Leg (L), no edema noted Leg (R), no edema noted Pedal (L), no edema noted Pedal (R), no edema noted Generalized Neurologic: responsive, motor weakness Skin: normal pigmentation, warm/dry GENIE PALACIOS Aug 15, 2017 13:19
[2017-08-15] MEDS ORDERED: Miralax 17gm pkt ORAL PRN (15:00)
--- NOTE | 2017-08-15 15:30 | Pulmonology Progress Note ---
Assessment/Plan Problems: (1) Chronic pain (2) Hypertension (3) Intractable pain (4) Seizures Assessment/Plan symptomatic treatment pain management dc planning to rehab ortho f/u Subjective ROS Limited/Unobtainable: No Allergies: Coded Allergies: No Known Allergies (Unverified , 07/24/17) Objective Last 24 Hour Vital Signs Date Time Temp Pulse Resp B/P (MAP) Pulse Ox O2 Delivery O2 Flow Rate FiO2 08/15/17 12:00 115/65 08/15/17 12:00 97.2 59 17 115/65 100 Room Air 08/15/17 08:00 97.0 51 17 126/75 96 Room Air 08/15/17 05:40 129/73 08/15/17 04:00 97.5 60 20 126/64 100 Room Air 08/14/17 23:49 121/76 08/14/17 23:40 97.9 57 18 121/76 100 Room Air 08/14/17 19:55 97.9 65 18 128/62 98 Room Air 08/14/17 17:20 100/60 08/14/17 16:15 97.6 58 22 100/60 99 Room Air Intake and Output 08/15/17 08/16/17 19:00 07:00 Intake Total 250 ml Balance 250 ml Intake Oral 250 ml # Voids 1 # Bowel Movements 1 General Appearance: WD/WN HEENT: normocephalic Respiratory/Chest: chest wall non-tender, lungs clear, chest wall tender Cardiovascular: normal rate Abdomen: normal bowel sounds, soft, non tender Genitourinary: normal external genitalia Extremities: no cyanosis Skin: no ulcers Neurologic/Psychiatric: no motor/sensory deficits Lymphatic: no neck adenopathy Laboratory Tests 08/15/17 05:20: White Blood Count 4.8, Red Blood Count 4.15L, Hemoglobin 12.4L, Hematocrit 38.0L , Mean Corpuscular Volume 92, Mean Corpuscular Hemoglobin 29.8, Mean Corpuscular Hemoglobin Concent 32.6, Red Cell Distribution Width 13.7, Platelet Count 115L, Mean Platelet Volume 8.0, Neutrophils (%) (Auto) 50.3, Lymphocytes ( %) (Auto) 26.3, Monocytes (%) (Auto) 10.9H, Eosinophils (%) (Auto) 11.3H, Basophils (%) (Auto) 1.3, Sodium Level 139, Potassium Level 4.4, Chloride Level 99, Carbon Dioxide Level 30, Anion Gap 10, Blood Urea Nitrogen 21, Creatinine 0.9, Estimat Glomerular Filtration Rate > 60, Glucose Level 95, Calcium Level 11.3H Current Medications Medications (Trade) Dose Ordered Sig/Medhat Route PRN Reason Start Time Stop Time Status Last Admin Dose Admin Acetaminophen (Tylenol) 650 mg Q4H PRN ORAL T>100.5 08/13/17 19:00 09/12/17 18:59 Al Hydroxide/Mg Hydroxide (Mylanta II) 30 ml Q6H PRN ORAL dyspepsia 08/13/17 19:00 09/12/17 18:59 Clonazepam (KlonoPIN) 2 mg Q8HR ORAL 08/14/17 18:00 08/21/17 17:59 08/15/17 05:41 Clonidine HCl (Catapres) 0.1 mg EVERY 6 HOURS ORAL 08/14/17 00:00 09/13/17 00:00 08/15/17 05:40 Dextrose (Dextrose 50%) STAT PRN IV Hypoglycemia 08/13/17 19:00 09/12/17 18:59 Docusate Sodium (Colace) 100 mg THREE TIMES A DAY ORAL 08/14/17 18:00 09/13/17 08:59 08/15/17 04:30 Duloxetine HCl (Cymbalta) 60 mg DAILY ORAL 08/15/17 09:00 09/14/17 08:59 Gabapentin (Neurontin) 300 mg THREE TIMES A DAY ORAL 08/14/17 18:00 09/13/17 17:59 08/14/17 17:24 Heparin Sodium (Porcine) (Heparin 5000 units/ml) 5,000 units EVERY 12 HOURS SUBQ 08/13/17 21:00 09/12/17 20:59 Hydromorphone HCl (Dilaudid) 2 mg Q4H PRN ORAL severe pain 08/14/17 12:45 08/21/17 12:44 08/14/17 22:20 Lactulose (Cephulac) 20 gm DAILYPRN PRN ORAL Constipation 08/15/17 07:00 09/14/17 06:59 08/15/17 10:50 Lorazepam (Ativan 2mg/ml 1ml) 0.5 mg Q4H PRN IV For Anxiety 08/13/17 19:00 08/20/17 18:59 08/14/17 06:11 Methadone HCl (Methadone HCl) 5 mg DAILY ORAL 08/15/17 09:00 08/22/17 08:59 08/15/17 10:52 Methadone HCl (Methadone HCl) 70 mg DAILY ORAL 08/15/17 09:00 08/22/17 08:59 08/15/17 10:53 Ondansetron HCl (Zofran) 4 mg Q6H PRN IVP Nausea & Vomiting 08/13/17 19:00 09/12/17 18:59 Polyethylene Glycol (Miralax) 17 gm DAILYPRN PRN ORAL Constipation 08/15/17 15:00 09/14/17 14:59 Zolpidem Tartrate (Ambien) 5 mg HSPRN PRN ORAL Insomnia 08/13/17 21:00 08/20/17 20:59 08/14/17 20:46 JAMIE MENDEZ Aug 15, 2017 15:30
[2017-08-15 16:00] VITALS: BP 108/71
[2017-08-15] MEDS: HYDROmorphone 2mg tab ORAL PRN ×2 (19:53→20:27)
[2017-08-15 20:00] VITALS: BP 103/64
[2017-08-16] VITALS: BP 121/68
--- NOTE | 2017-08-18 08:32 | Consultation ---
DATE OF CONSULTATION: 08/15/2017 PSYCHOTHERAPY CONSULTATION PROGRESS NOTE CONSULTING PHYSICIAN: Henry Flor M.D. TREATING ATTENDING PHYSICIAN: Sudhir Schmitt D.O. History Of Present Illness: The patient is a 61-year-old male patient. The patient has a history of paranoid schizophrenia. The patient has been admitted to the hospital for pain including hip pain. The patient is from [facility]. The patient has been on methadone for his pain, however, has been referred to the hospital for treatment. The patient has been and for these reasons, is referred to psychotherapeutic services. This clinician assessed this patient. The patient is cooperative. He is participating in the treatment, slightly anxious due to his level of pain. He denies suicidal or homicidal thoughts of ideation. Denies auditory or visual hallucinations at this time. At times, he does have auditory hallucinations, but at this time, his symptoms are not unbearable. The patient is cooperative . Past Medical History: History of chronic pain and right eye blindness. Past Psychiatric History: The patient has a history of paranoid schizophrenia. The patient has auditory hallucinations in the past. ALLERGIES: The patient has no known drug allergies. Substance Abuse History: There is no indication of alcohol use, illicit substance use . Social History: The patient is a 61-year-old male patient from [facility], financially sustained through [employer]. Mental Status Examination: The patient is alert and oriented x3, person, place, and time. His mood is anxious. Affect is congruent. Thought process slightly disorganized. He has fair attention and concentration. Fair insight, judgment, and impulse control. DIAGNOSES: [place] History of paranoid schizophrenia. [place] Deferred. [place] Per History and Physical. Plan: This clinician assessed the patient, provided the patient with reality orientation and supportive psychotherapy. Encouraging the patient to participate in treatment milieu. Continue with medication management and behavioral management. This clinician has reviewed the patient's chart and discussed the treatment with the nursing staff. Henry Flor PsyD. DR: LISHA JOB#: [id number] CC:
--- NOTE | 2017-08-18 08:37 | Discharge Summary ---
Discharge Summary Hospital Course Date of Admission Aug 13, 2017 at 19:37 Date of Discharge Aug 16, 2017 at 02:10 Admitting Diagnosis intractable pain HPI Jacoby Saucedo is a 61 year old male who was admitted on Aug 13, 2017 at 19:37 for Intractable Pain Hospital Course [id number] Discharge Discharge Disposition Patient left AMA Discharge Diagnoses: Keesha Ward NP Aug 18, 2017 08:37
--- NOTE | 2017-08-19 04:15 | Discharge Summary 2 SIG ---
DATE OF ADMISSION: 08/13/2017 DATE OF DISCHARGE: 08/16/2017 CONSULTANTS: 1. Didi Wheeler M.D. 2. Prakash Clay M.D. 3. Ronaldo Day M.D. 4. Taya Lane M.D. Brief Hospital Course: The patient is a 61-year-old male [facility], presented to ED for intractable pain in the knee and hip. He has history of chronic pain and is on methadone. Pain became unbearable and the patient was taken to ED. Laboratories were stable. The patient was given pain medication, however, continued to have pain and unable to walk. The patient was then admitted to medical floor. He was also noted to be hypertensive. Blood pressure on arrival to ED was 152/86. He was given clonidine q.6 h. He was seen by pain management and was continued on methadone. He was initially given morphine and was discontinued, switched to Dilaudid. He was showing extreme agitation and irritability throughout hospital course with high levels of anxiety, demanding to leave AMA. He had poor insight into his medical condition. He was given Cymbalta 60 mg daily and Neurontin 300 mg t.i.d. Full treatment was not carried out as the patient signed out against medical advice. FINAL DIAGNOSES: 1. Intractable pain. 2. Hypertension. 3. Chronic pain. 4. Prior fracture on right knee. 5. Old pubic rami fracture. 6. Noncompliance. The patient was diagnosed to have a left nondisplaced pubic rami fracture as well as right lateral tibial plateau fracture and was discharged to acute rehabilitation with instructions to maintain right knee immobilizer. On examination by orthopedic, right knee immobilizer was off. The patient does have pain in the lateral joint line with no significant effusion with range of motion 0 to 60 degrees. Left hip fracture would eventually heal with conservative treatment. Right knee was treated conservatively. If failed, could have a right total knee arthroplasty. Given the patient's comorbidities, avoid major surgery for now. If failed, then arthroplasty would be indicated. Right leg advice to be nonweightbearing for a total of six weeks. Can bear weight on the left leg as tolerated. DISPOSITION: The patient left AMA. Sudhir Schmitt D.O. I have been assigned to dictate discharge summary on this account and I was not involved in the patient's management. Keesha Ward N.P. DR: Arun JOB#: [id number] CC:
== END 2017-08-16 02:10 | disposition left against medical advice (07) | DRG 556 ==
LOC: EDBD 18:43 → EMR 18:50 → 4E 19:37 → EDBEDREQ 21:05 → 4E 22:04
DX: M25.552 Pain in left hip (principal); D61.818 Other pancytopenia; R56.9 Unspecified convulsions; F11.20 Opioid dependence, uncomplicated; F20.0 Paranoid schizophrenia; G89.29 Other chronic pain; M25.561 Pain in right knee; S32.592D Other specified fracture of left pubis, subsequent encounter for fracture with routine healing; I10 Essential (primary) hypertension; S82.144D Nondisplaced bicondylar fracture of right tibia, subsequent encounter for closed fracture with routine healing; F41.9 Anxiety disorder, unspecified; F32.9 Major depressive disorder, single episode, unspecified; H54.41 Blindness, right eye, normal vision left eye; V89.2XXD Person injured in unspecified motor-vehicle accident, traffic, subsequent encounter; F19.21 Other psychoactive substance dependence, in remission; Z91.19 Patient's noncompliance with other medical treatment and regimen
CPT/HCPCS: 36415; 80048; 80053; 81003; 84443; 85025; 87081; 97803; 99285

== ENCOUNTER 2017-10-31 18:08 | Inpatient (IN) | payer MEDICARE, MEDICAID ==
[~2017-10-31] VITALS: Ht 149.9 cm; Wt 72.6 kg
[2017-10-31 18:08] VITALS: BP 118/67
[~2017-10-31 18:08] MED LIST changes: +DILAUDID2 MG ORAL; +METHADONE H5 MG/5 M1 PO; +NKM; +UNOBMED
[2017-10-31] MEDS ORDERED: Activated Charcoal 50gm/240ml Btl ORAL ONE (18:30)
[2017-10-31 19:12] LABS: ALBUMIN/GLOBULIN RATIO 0.7 (1.0-2.7); ANION GAP 9 mmol/L (5-15); ASPARTATE AMINO TRANSFERASE 35 U/L (15-37); CARBON DIOXIDE 23 MMOL/L (21-32); CHLORIDE 97 MMOL/L (98-107); POTASSIUM 4.7 MMOL/L (3.5-5.1); SODIUM 128 MMOL/L (136-145); TOTAL PROTEIN 8.1 G/DL (6.4-8.2)
[2017-10-31 19:29] LABS: ALANINE AMINOTRANSFERASE 12 U/L (12-78); CALCIUM 9.1 MG/DL (8.5-10.1); CREATININE 0.8 MG/DL (0.55-1.30); GLOMERULAR FILTRATION RATE > 60 mL/min (>60)
[2017-10-31] MEDS ORDERED: Pantoprazole Inj IVP ONE (19:30)
[2017-10-31 19:31] LABS: ACETAMINOPHEN < 2 MCG/ML (10-30); ALCOHOL < 3 mg/dL
--- NOTE | 2017-10-31 20:01 | Emergency Room Report ---
History of Present Illness General Chief Complaint: Altered Mental Status Source: Medical Record, EMS Present Illness HPI 62-year-old male presents ED for evaluation. Patient found on street by EMS. Altered. Accu-Chek was low. Patient had a white powder or on his face. Patient told EMS that he was ingesting Ajax detergent. On arrival patient is lethargic. Unable to provide any additional history at this time. Patient is wheelchair-bound. No aggravating relieving factors. No other associated symptoms Allergies: Coded Allergies: No Known Allergies (Unverified , 07/24/17) UNABLE TO ASSESS (Unverified , 10/31/17) Patient History Past Medical History: none, HTN, COPD Past Surgical History: none Pertinent Family History: none Social History: Denies: smoking, alcohol use, drug use Immunizations: UTD Reviewed Nursing Documentation: PMH: Agreed, PSxH: Agreed Nursing Documentation-PMH Past Medical History Deferred: Pt Cognitively Impaired Hx Cardiac Problems: Yes - HTN Hx Hypertension: Yes Hx COPD: Yes Hx Cancer: No Hx Gastrointestinal Problems: Yes - hernia Hx Neurological Problems: No Review of Systems All Other Systems: limited Physical Exam Vital Signs Date Time Temp Pulse Resp B/P (MAP) Pulse Ox O2 Delivery O2 Flow Rate FiO2 10/31/17 17:56 97.9 79 22 118/76 98 Room Air Sp02 EP Interpretation: reviewed, normal General Appearance: other - lethargic Head: normocephalic Eyes: bilateral eye normal inspection, bilateral eye PERRL ENT: normal ENT inspection Neck: normal inspection Respiratory: chest non-tender, lungs clear, normal breath sounds, speaking full sentences Cardiovascular #1: regular rate, rhythm, no edema Gastrointestinal: normal bowel sounds, non tender, soft, non-distended, no guarding, no rebound Rectal: deferred Genitourinary: no CVA tenderness Musculoskeletal: normal inspection Neurologic: other - lethargic Psychiatric: other - lethargic Skin: normal inspection Lymphatic: normal inspection Medical Decision Making Diagnostic Impression: Primary Impression: Altered mental status Qualified Codes: R41.82 - Altered mental status, unspecified Additional Impressions: Hypoglycemia Overdose Qualified Codes: T50.904A - Poisoning by unspecified drugs, medicaments and biological substances, undetermined, initial encounter ER Course Hospital Course 62-year-old M presents to ED with altered mental status. hypogylcemia, with white powder on his face Differential diagnoses include: Psychosis, EtOH, drug abuse Clinical course patient placed on stretcher. On snipper. After initial history and physical ordered labs, IV fluids, EKG, CT brain. Labs reviewed-Na128, CBC pending, Utox pending CT brain shows no acute pathology EKG - NSR, no acute ishcemic changes NG tube placed. Charcoal given. Discussed case with poison control. Recommend evaluation of oropharynx for possible burn injury. Chest x-ray shows NG tube in place CT Head no acute process On reassessment patient again hypoglycemic. Given D50 patient will be admitted to Dr Oskar royal. I feel this is a highly complex case requiring extensive working including EKG/Rhythm strip, Xray/CT/US, Blood/urine lab work, repeat exams while in ED, and administration of strong opiates/narcotics for pain control, admission to hospital or close patient follow up. Diagnosis - AMS, hypoglycemia, overdose Admitted to floor in serious condition Labs Test 10/31/17 18:40 10/31/17 19:50 Sodium Level 128 MMOL/L (136-145) Potassium Level 4.7 MMOL/L (3.5-5.1) Chloride Level 97 MMOL/L (98-107) Carbon Dioxide Level 23 MMOL/L (21-32) Anion Gap 9 mmol/L (5-15) Blood Urea Nitrogen 17 mg/dL (7-18) Creatinine 0.8 MG/DL (0.55-1.30) Estimat Glomerular Filtration Rate > 60 mL/min (>60) Glucose Level 283 MG/DL (74-106) Calcium Level 9.1 MG/DL (8.5-10.1) Total Bilirubin 0.4 MG/DL (0.2-1.0) Aspartate Amino Transf (AST/SGOT) 35 U/L (15-37) Alanine Aminotransferase (ALT/SGPT) 12 U/L (12-78) Alkaline Phosphatase 172 U/L (46-116) Total Protein 8.1 G/DL (6.4-8.2) Albumin 3.4 G/DL (3.4-5.0) Globulin 4.7 g/dL Albumin/Globulin Ratio 0.7 (1.0-2.7) Salicylates Level 3.8 ug/mL (2.8-20) Acetaminophen Level < 2 MCG/ML (10-30) Serum Alcohol < 3 mg/dL EKG Diagnostic Results Rate: normal Rhythm: NSR ST Segments: no acute changes ASA given to the pt in ED: No Rhythm Strip Diag. Results EP Interpretation: yes Rhythm: NSR, no PVC's, no ectopy Chest X-Ray Diagnostic Results Chest X-Ray Diagnostic Results : Chest X-Ray Ordered: Yes # of Views/Limited/Complete: 1 View Indication: Other - NG tube placement EP Interpretation: Yes Interpretation: no consolidation, no effusion, no pneumothorax, no acute cardiopulmonary disease, other - NG tube in stomach Impression: Other - NG tube in place Electronically Signed by: Electronically signed by Paulino Tinoco MD Other X-Ray Diagnostic Results Other X-Ray Diagnostic Results : X-Ray ordered: KUB CT/MRI/US Diagnostic Results CT/MRI/US Diagnostic Results : Imaging Test Ordered: cT head Impression no acute process Last Vital Signs Date Time Temp Pulse Resp B/P (MAP) Pulse Ox O2 Delivery O2 Flow Rate FiO2 10/31/17 18:08 97.9 79 13 118/67 98 Room Air Status: improved Disposition: ADMITTED INPATIENT Condition: Serious Referrals: GENIE PALACIOS (PCP) PAULINO TINOCO M.D. Oct 31, 2017 20:01
[2017-10-31 20:04] LABS: APPEARANCE,URINE CLEAR; KETONES,URINE NEGATIVE (NEGATIVE); LEUKOCYTE ESTERASE ,URINE 2+ (NEGATIVE); NITRITE,URINE POSITIVE (NEGATIVE); PH,URINE 6 (4.5-8.0); PROTEIN,URINE 1+ (NEGATIVE); UROBILINOGEN,URINE NORMAL MG/DL (0.0-1.0)
[2017-10-31 20:11] LABS: BACTERIA,URINE MANY /HPF
[2017-10-31] MEDS ORDERED: cefTRIAXone 1 GM in NS 55 ML IVPB ONE (20:15)
[2017-10-31 20:23] VITALS: BP 136/65
[2017-10-31] MEDS ORDERED: ASPIRIN81 MG ORAL (20:38)
[2017-10-31] MEDS ORDERED: FLUTICASONE PRO16 G1 NASAL (20:38)
[2017-10-31] MEDS ORDERED: LACTULOSE20 GM/301 ORAL (20:38)
[2017-10-31] MEDS ORDERED: TRAZODONE HCL100 MG ORAL (20:38)
[2017-10-31] MEDS ORDERED: LASIX40 MG ORAL (20:38)
[2017-10-31] MEDS ORDERED: PANTOPRAZOLE SO40 MG ORAL (20:38)
[2017-10-31] MEDS ORDERED: SILVER SULFADIA50 GM TP (20:38)
[2017-10-31] MEDS ORDERED: CYCLOBENZAPRINE10 MG ORAL (20:38)
[2017-10-31] MEDS ORDERED: FUROSEMIDE40 MG/5 ML ORAL (20:38)
[2017-10-31] MEDS ORDERED: IBUPROFEN800 MG ORAL (20:38)
[2017-10-31] MEDS ORDERED: VOLTAREN100 G1 TP (20:38)
[2017-10-31] MEDS ORDERED: GABAPENTIN800 MG ORAL (20:38)
[2017-10-31 20:42] LABS: BASOPHILS % (AUTO) 0.9 % (0.0-2.0); EOSINOPHILS % (AUTO) 2.2 % (0.0-3.0); LYMPHOCYTES % (AUTO) 19.8 % (20.0-45.0); MEAN CORPUSCULAR HEMOGLOBIN 28.3 PG (27.0-31.0); MEAN CORPUSCULAR VOLUME 88 FL (80-99); MEAN PLATELET VOLUME 9.6 FL (6.5-10.1); MONOCYTES % (AUTO) 9.6 % (1.0-10.0); NEUTROPHILS % (AUTO) 67.5 % (45.0-75.0); PLATELET COUNT 115 K/UL (150-450); RED CELL DISTRIBUTION WIDTH 12.9 % (11.6-14.8); WHITE BLOOD COUNT 5.2 K/UL (4.8-10.8)
[2017-10-31] MEDS ORDERED: D5NS 1,000 ML IV SCH (21:45)
[2017-10-31 22:23] VITALS: BP 140/85
[2017-10-31] MEDS ORDERED: TraZODone 100mg tab ORAL PRN (22:45)
[2017-10-31] MEDS ORDERED: D5 1/2NS 1,000 ML IV SCH (22:46)
[2017-10-31] MEDS ORDERED: LORazepam Inj 2mg/ml 1ml IV PRN (23:00)
[2017-10-31] MEDS ORDERED: Morphine Sulfate 2mg/ml Inj IVP PRN (23:00)
[2017-10-31 23:39] VITALS: BP 133/72
[2017-11-01 04:45] VITALS: BP 139/71
[2017-11-01 07:51] LABS: PROTHROMBIN TIME 10.7 SEC (9.30-11.50)
[2017-11-01 07:53] VITALS: BP 116/61
[2017-11-01 08:10] LABS: ALANINE AMINOTRANSFERASE 10 U/L (12-78); ALBUMIN/GLOBULIN RATIO 0.8 (1.0-2.7); ANION GAP 7 mmol/L (5-15); ASPARTATE AMINO TRANSFERASE 13 U/L (15-37); CALCIUM 8.8 MG/DL (8.5-10.1); CARBON DIOXIDE 27 MMOL/L (21-32); CHLORIDE 101 MMOL/L (98-107); CREATININE 0.9 MG/DL (0.55-1.30); GLOMERULAR FILTRATION RATE > 60 mL/min (>60); POTASSIUM 4.1 MMOL/L (3.5-5.1); SODIUM 135 MMOL/L (136-145); TOTAL PROTEIN 6.8 G/DL (6.4-8.2)
[2017-11-01] MEDS: Cyclobenzaprine 10mg Tab ORAL SCH ×2 (08:39→08:44)
[2017-11-01 08:43] LABS: MEAN CORPUSCULAR HEMOGLOBIN 28.9 PG (27.0-31.0); MEAN CORPUSCULAR HGB CONC 32.7 G/DL (32.0-36.0); MEAN CORPUSCULAR VOLUME 89 FL (80-99); MEAN PLATELET VOLUME 8.9 FL (6.5-10.1); PLATELET COUNT 78 K/UL (150-450); RED BLOOD COUNT 4.43 M/UL (4.70-6.10); RED CELL DISTRIBUTION WIDTH 12.5 % (11.6-14.8); WHITE BLOOD COUNT 5.3 K/UL (4.8-10.8)
[2017-11-01] MEDS ORDERED: Lactulose 20gm/30ml UDC ORAL SCH (09:00)
[2017-11-01] MEDS ORDERED: Heparin 5000 units/ml inj SUBQ SCH (09:00)
[2017-11-01 10:27] LABS: BAND NEUTROPHILS % (MANUAL) 0 % (0-8); BASOPHILS % (MANUAL) 1 % (0-2); EOSINOPHILS % (MANUAL) 1 % (0-3); LYMPHOCYTES % (MANUAL) 19 % (20-45); NEUTROPHILS % (MANUAL) 72 % (45-75); PLATELET ESTIMATE DECREASED; PLATELET MORPHOLOGY NORMAL; TOTAL CELLS COUNTED 100
--- NOTE | 2017-11-01 10:52 | GI Progress Note ---
Assessment/Plan Assessment/Plan patient swallowed Ajax needs emergency EGD patient is not able to sign and no family available Subjective Gastrointestinal/Abdominal: Reports: poor appetite Objective Last 24 Hour Vital Signs Date Time Temp Pulse Resp B/P (MAP) Pulse Ox O2 Delivery O2 Flow Rate FiO2 11/01/17 07:53 97.9 72 21 116/61 96 Room Air 11/01/17 04:45 97.7 70 17 139/71 97 Room Air 10/31/17 23:39 97.3 69 15 133/72 98 Room Air 10/31/17 22:34 97.9 80 13 140/85 98 Room Air 10/31/17 22:23 97.9 80 13 140/85 98 Room Air 10/31/17 20:23 97.9 72 13 136/65 98 Room Air 10/31/17 18:08 97.9 79 13 118/67 98 Room Air 10/31/17 17:56 97.9 79 22 118/76 98 Room Air Laboratory Tests Test 10/31/17 18:40 10/31/17 19:50 10/31/17 20:17 11/01/17 06:45 Sodium Level 128 MMOL/L (136-145) L 135 MMOL/L (136-145) L Potassium Level 4.7 MMOL/L (3.5-5.1) 4.1 MMOL/L (3.5-5.1) Chloride Level 97 MMOL/L (98-107) L 101 MMOL/L (98-107) Carbon Dioxide Level 23 MMOL/L (21-32) 27 MMOL/L (21-32) Anion Gap 9 mmol/L (5-15) 7 mmol/L (5-15) Blood Urea Nitrogen 17 mg/dL (7-18) 11 mg/dL (7-18) Creatinine 0.8 MG/DL (0.55-1.30) 0.9 MG/DL (0.55-1.30) Estimat Glomerular Filtration Rate > 60 mL/min (>60) > 60 mL/min (>60) Glucose Level 283 MG/DL (74-106) H 94 MG/DL (74-106) # Calcium Level 9.1 MG/DL (8.5-10.1) 8.8 MG/DL (8.5-10.1) Total Bilirubin 0.4 MG/DL (0.2-1.0) 0.4 MG/DL (0.2-1.0) Aspartate Amino Transf (AST/SGOT) 35 U/L (15-37) 13 U/L (15-37) L Alanine Aminotransferase (ALT/SGPT) 12 U/L (12-78) 10 U/L (12-78) L Alkaline Phosphatase 172 U/L (46-116) H 149 U/L (46-116) H Total Protein 8.1 G/DL (6.4-8.2) 6.8 G/DL (6.4-8.2) Albumin 3.4 G/DL (3.4-5.0) 3.0 G/DL (3.4-5.0) L Globulin 4.7 g/dL 3.8 g/dL Albumin/Globulin Ratio 0.7 (1.0-2.7) L 0.8 (1.0-2.7) L Salicylates Level 3.8 ug/mL (2.8-20) Acetaminophen Level < 2 MCG/ML (10-30) L Serum Alcohol < 3 mg/dL Urine Color Pale yellow Urine Appearance Clear Urine pH 6 (4.5-8.0) Urine Specific [place] 1.015 (1.005-1.035) Urine Protein 1+ (NEGATIVE) H Urine Glucose (UA) Negative (NEGATIVE) Urine Ketones Negative (NEGATIVE) Urine Occult Blood 3+ (NEGATIVE) H Urine Nitrite Positive (NEGATIVE) H Urine Bilirubin Negative (NEGATIVE) Urine Urobilinogen Normal MG/DL (0.0-1.0) Urine Leukocyte Esterase 2+ (NEGATIVE) H Urine RBC 10-15 /HPF (0 - 0) H Urine WBC 5-10 /HPF (0 - 0) H Urine Squamous Epithelial Cells None /LPF (NONE/OCC) Urine Bacteria Many /HPF (NONE) H Urine Opiates Screen Negative (NEGATIVE) Urine Barbiturates Screen Negative (NEGATIVE) Phencyclidine (PCP) Screen Negative (NEGATIVE) Urine Amphetamines Screen Negative (NEGATIVE) Urine Benzodiazepines Screen Negative (NEGATIVE) Urine Cocaine Screen Negative (NEGATIVE) Urine Marijuana (THC) Screen Negative (NEGATIVE) White Blood Count 5.2 K/UL (4.8-10.8) 5.3 K/UL (4.8-10.8) Red Blood Count 5.70 M/UL (4.70-6.10) 4.43 M/UL (4.70-6.10) L Hemoglobin 16.1 G/DL (14.2-18.0) 12.8 G/DL (14.2-18.0) L Hematocrit 50.4 % (42.0-52.0) 39.2 % (42.0-52.0) L Mean Corpuscular Volume 88 FL (80-99) 89 FL (80-99) Mean Corpuscular Hemoglobin 28.3 PG (27.0-31.0) 28.9 PG (27.0-31.0) Mean Corpuscular Hemoglobin Concent 32.0 G/DL (32.0-36.0) 32.7 G/DL (32.0-36.0) Red Cell Distribution Width 12.9 % (11.6-14.8) 12.5 % (11.6-14.8) Platelet Count 115 K/UL (150-450) L 78 K/UL (150-450) L Mean Platelet Volume 9.6 FL (6.5-10.1) 8.9 FL (6.5-10.1) Neutrophils (%) (Auto) 67.5 % (45.0-75.0) % (45.0-75.0) Lymphocytes (%) (Auto) 19.8 % (20.0-45.0) L % (20.0-45.0) Monocytes (%) (Auto) 9.6 % (1.0-10.0) % (1.0-10.0) Eosinophils (%) (Auto) 2.2 % (0.0-3.0) % (0.0-3.0) Basophils (%) (Auto) 0.9 % (0.0-2.0) % (0.0-2.0) Differential Total Cells Counted 100 Neutrophils % (Manual) 72 % (45-75) Lymphocytes % (Manual) 19 % (20-45) L Monocytes % (Manual) 7 % (1-10) Eosinophils % (Manual) 1 % (0-3) Basophils % (Manual) 1 % (0-2) Band Neutrophils 0 % (0-8) Platelet Estimate Decreased L Platelet Morphology Normal Prothrombin Time 10.7 SEC (9.30-11.50) Prothromb Time International Ratio 1.0 (0.9-1.1) Activated Partial Thromboplast Time 27 SEC (23-33) Microbiology Date/Time Source Procedure Growth Status 10/31/17 19:50 Urine,Clean Catch Urine Culture - Preliminary Gram Negative Bacillus 1 Resulted Height (Feet): 4 Height (Inches): 11.00 Weight (Pounds): 160 General Appearance: lethargic Cardiovascular: normal rate Respiratory/Chest: lungs clear Abdominal Exam: soft Extremities: non-tender MELISSA BRADY Nov 01, 2017 10:52
[2017-11-01] MEDS ORDERED: D5 1/2NS 1000ml IV ONE (11:08)
--- NOTE | 2017-11-03 11:38 | Discharge Summary ---
Discharge Summary Hospital Course Date of Admission Oct 31, 2017 at 18:45 Date of Discharge Nov 01, 2017 at 11:09 Admitting Diagnosis hypoglycemia; altered mental status HPI Jacoby Saucedo is a 62 year old male who was admitted on Oct 31, 2017 at 18:45 for Hypoglycemia,Altered Mental Status Hospital Course [id number] Discharge Discharge Disposition Patient left AMA Discharge Diagnoses: Keesha Ward NP Nov 03, 2017 11:38
--- NOTE | 2017-11-03 18:15 | Discharge Summary 2 SIG ---
DATE OF ADMISSION: 10/31/2017 DATE OF DISCHARGE: 11/01/2017 CHERRY CUTTER: Virgilio Jordan M.D. BRIEF HOSPITAL COURSE: The patient is a 62-year-old male, who presented to ED. The patient was found on the street by EMS altered and Accu-Chek was low. The patient had white powder on his face and told EMS he was injecting Ajax detergent. On arrival to ED, he was lethargic and unable to provide any of the additional history. Workup in the ED showed sodium level of 128, chloride was 97, salicylate level 3.8, acetaminophen level less than 2, serum alcohol less than 3. Urine toxicology was negative. He had a CT scan of the brain that showed no intracranial hemorrhage with involutional changes with small vessel disease and a right prostatic globe. NG-tube was placed and he was given charcoal. Poison Control was contacted and recommended evaluation of oropharynx for possible burn injury. NG tube placement was confirmed via x-ray. On reassessment, he again had a hypoglycemic episode and was given D50. He was then admitted for altered mental status/encephalopathy, hypoglycemia and overdose. He needed EGD, however, following day patient was more alert and awake, and left against medical advice. FINAL DIAGNOSES: 1. Altered mental status/acute toxic metabolic encephalopathy. 2. Hypoglycemia. 3. Overdose. 4. Homelessness. Sudhir Schmitt D.O. I have been assigned to dictate discharge summary on this account and I was not involved in the patient's management. Keesha Ward N.P. DR: ISRAEL JOB#: [id number] CC: STEPHANIE
== END 2017-11-01 11:09 | disposition left against medical advice (07) | DRG 917 ==
LOC: EDBD 18:08 → EMR 18:40 → 4E 18:45 → EDBEDREQ 19:17
DX: T55.0X1A Toxic effect of soaps, accidental (unintentional), initial encounter (principal); G92 Toxic encephalopathy; I10 Essential (primary) hypertension; E16.2 Hypoglycemia, unspecified; Z59.0 Homelessness; J44.9 Chronic obstructive pulmonary disease, unspecified; Y92.488 Other paved roadways as the place of occurrence of the external cause
CPT/HCPCS: 36415; 70450; 71010; 80053; 80307; 80329; 81003; 82962; 85007; 85025; 85610; 85730; 87081; 87086; 87181; 93005; 99285

== ENCOUNTER 2017-11-01 18:49 | Emergency (ER) | payer MEDICARE, MEDICAID ==
[~2017-11-01] VITALS: Ht 180.3 cm; Wt 72.6 kg
[~2017-11-01 18:49] MED LIST changes: +ASPIRIN81 MG ORAL; +CYCLOBENZAPRINE10 MG ORAL; +FLUTICASONE PRO16 G1 NASAL; +FUROSEMIDE40 MG/5 ML ORAL; +GABAPENTIN800 MG ORAL; +IBUPROFEN800 MG ORAL; +LACTULOSE20 GM/301 ORAL; +LASIX40 MG ORAL; +PANTOPRAZOLE SO40 MG ORAL; +SILVER SULFADIA50 GM TP; +TRAZODONE HCL100 MG ORAL; +VOLTAREN100 G1 TP
[2017-11-01 19:00] VITALS: BP 139/89
[2017-11-01 19:15] VITALS: BP 139/89
--- NOTE | 2017-11-01 21:52 | Emergency Room Report ---
History of Present Illness General Chief Complaint: General Complaint Source: Patient Present Illness HPI The patient is a 62-year-old male presenting to the emergency department immediately leaving this hospital AMA. He was seen in this emergency Department yesterday for altered level of consciousness and found to have hypoglycemia and was abusing Ajax. He states that he left AMA, found out it was cold outside, and now is returning. He states that he wants to sleep. He denies any pain or other symptoms Allergies: Coded Allergies: No Known Allergies (Unverified , 07/24/17) Patient History Past Medical History: see triage record Pertinent Family History: none Social History: Reports: drug use Reviewed Nursing Documentation: PMH: Agreed, PSxH: Agreed Nursing Documentation-PMH Past Medical History: No History, Except For Hx Cardiac Problems: Yes - HTN Hx Hypertension: Yes Hx COPD: Yes Hx Cancer: No Hx Gastrointestinal Problems: Yes - hernia Hx Neurological Problems: No Review of Systems All Other Systems: limited Physical Exam Vital Signs Date Time Temp Pulse Resp B/P (MAP) Pulse Ox O2 Delivery O2 Flow Rate FiO2 11/01/17 18:56 97.3 97 18 139/89 100 Room Air Sp02 EP Interpretation: reviewed, normal General Appearance: no apparent distress, alert, GCS 15, non-toxic Head: normocephalic, atraumatic ENT: hearing grossly normal, normal pharynx, no angioedema, normal voice Neck: full range of motion, supple/symm/no masses Musculoskeletal: back normal, gait/station normal, normal range of motion Neurologic: alert, responsive, sensory intact Medical Decision Making PA Attestation Dr. Gonzalez is my supervising physician. Patient management was discussed with my supervising physician Diagnostic Impression: Primary Impression: Sensation of feeling cold ER Course The patient is a 62-year-old male presenting to the emergency department after leaving AMA today for feeling cold and wanting to sleep. Differential diagnosis considered not limited to: Drug use, alcohol intoxication , psychosis, pneumonia, bronchitis, hypothermia, among others Physical exam: Afebrile. No apparent distress. The patient was brought to a gurney and immediately fell asleep. Upon waking the patient, he has become aggressive and states that he just wants to sleep. He is not being cooperative. I again tried to have the patient cooperate and he stood up and left. I attempted to have the patient staying be fully evaluated. He refused I was unable to appropriately assessed the patient at this time. He has eloped Last Vital Signs Date Time Temp Pulse Resp B/P (MAP) Pulse Ox O2 Delivery O2 Flow Rate FiO2 11/01/17 19:15 97.3 97 18 139/89 100 Room Air Status: improved Disposition: ELOPED Condition: Unknown Referrals: GENIE PALACIOS (PCP) JOBY FRANKLIN Nov 01, 2017 21:52
== END 2017-11-01 19:15 | disposition left against medical advice (07) ==
LOC: EMR 19:05
DX: R20.8 Other disturbances of skin sensation (principal); I10 Essential (primary) hypertension; J44.9 Chronic obstructive pulmonary disease, unspecified
CPT/HCPCS: 99282

== ENCOUNTER 2017-11-11 15:22 | Inpatient (IN) | payer MEDICARE, MEDICAID ==
[~2017-11-11] VITALS: Ht 172.7 cm; Wt 71.7 kg
[2017-11-11 16:00] VITALS: BP 131/77
--- NOTE | 2017-11-11 16:02 | Emergency Room Report ---
History of Present Illness General Chief Complaint: Nausea, Vomiting, and Diarrhea Source: Medical Record Present Illness HPI The patient is a 62-year-old male who presented after increased nausea and vomiting. Patient reports having some symptoms for approximately 5 days. The patient had prior history of hernia. The patient was noted to have been vomiting. History is limited by patient being a poor historian Allergies: Coded Allergies: No Known Allergies (Unverified , 07/24/17) Patient History Past Medical History: see triage record Reviewed Nursing Documentation: PMH: Agreed, PSxH: Agreed Nursing Documentation-PMH Past Medical History: No History, Except For Hx Cardiac Problems: Yes - blindness Hx Hypertension: Yes Hx COPD: Yes Hx Cancer: No Hx Gastrointestinal Problems: Yes - hernia Hx Neurological Problems: No Review of Systems All Other Systems: limited - by poor historian Physical Exam Vital Signs Date Time Temp Pulse Resp B/P (MAP) Pulse Ox O2 Delivery O2 Flow Rate FiO2 11/11/17 15:15 98.2 64 18 126/74 95 Room Air General Appearance: alert, cachetic, Chronically Ill Eyes: 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 Differential diagnoses included ischemic bowel, appendicitis, perforated viscus, abdominal aortic aneurysm, inferior myocardial infarction, viral gastroenteritis. Because of complexity of patient's case laboratory testing and imaging studies were ordered. I laboratory testing was notable for a normal white blood count. Patient was noted to have evidence of urinary infection. CT the abdomen and pelvis read by radiology showed somewhat distended bladder with nonspecific bowel gas pattern. Patient was given IV antibiotics. Dr. Sudhir Schmitt was contacted for inpatient management. Labs Test 11/11/17 16:15 11/11/17 16:30 11/11/17 17:27 White Blood Count 9.3 K/UL (4.8-10.8) Red Blood Count 4.86 M/UL (4.70-6.10) Hemoglobin 13.0 G/DL (14.2-18.0) Hematocrit 42.0 % (42.0-52.0) Mean Corpuscular Volume 86 FL (80-99) Mean Corpuscular Hemoglobin 26.7 PG (27.0-31.0) Mean Corpuscular Hemoglobin Concent 30.9 G/DL (32.0-36.0) Red Cell Distribution Width 12.6 % (11.6-14.8) Platelet Count 125 K/UL (150-450) Mean Platelet Volume 7.7 FL (6.5-10.1) Neutrophils (%) (Auto) 80.3 % (45.0-75.0) Lymphocytes (%) (Auto) 11.2 % (20.0-45.0) Monocytes (%) (Auto) 6.9 % (1.0-10.0) Eosinophils (%) (Auto) 1.2 % (0.0-3.0) Basophils (%) (Auto) 0.4 % (0.0-2.0) Sodium Level 140 MMOL/L (136-145) Potassium Level 4.0 MMOL/L (3.5-5.1) Chloride Level 104 MMOL/L (98-107) Carbon Dioxide Level 29 MMOL/L (21-32) Anion Gap 7 mmol/L (5-15) Blood Urea Nitrogen 17 mg/dL (7-18) Creatinine 1.0 MG/DL (0.55-1.30) Estimat Glomerular Filtration Rate > 60 mL/min (>60) Glucose Level 125 MG/DL (74-106) Calcium Level 9.6 MG/DL (8.5-10.1) Total Bilirubin 0.4 MG/DL (0.2-1.0) Aspartate Amino Transf (AST/SGOT) 22 U/L (15-37) Alanine Aminotransferase (ALT/SGPT) 17 U/L (12-78) Alkaline Phosphatase 151 U/L (46-116) Troponin I 0.000 ng/mL (0.000-0.056) Total Protein 8.0 G/DL (6.4-8.2) Albumin 3.6 G/DL (3.4-5.0) Globulin 4.4 g/dL Albumin/Globulin Ratio 0.8 (1.0-2.7) Lipase 67 U/L (73-393) Urine Color Pale yellow Urine Appearance Cloudy Urine pH 7 (4.5-8.0) Urine Specific [place] 1.010 (1.005-1.035) Urine Protein Negative (NEGATIVE) Urine Glucose (UA) Negative (NEGATIVE) Urine Ketones Negative (NEGATIVE) Urine Occult Blood 1+ (NEGATIVE) Urine Nitrite Negative (NEGATIVE) Urine Bilirubin Negative (NEGATIVE) Urine Urobilinogen Normal MG/DL (0.0-1.0) Urine Leukocyte Esterase 3+ (NEGATIVE) Urine RBC 2-4 /HPF (0 - 0) Urine WBC Tntc /HPF (0 - 0) Urine Squamous Epithelial Cells None /LPF (NONE/OCC) Urine Bacteria Many /HPF (NONE) Urine Opiates Screen Positive (NEGATIVE) Urine Barbiturates Screen Negative (NEGATIVE) Phencyclidine (PCP) Screen Negative (NEGATIVE) Urine Amphetamines Screen Negative (NEGATIVE) Urine Benzodiazepines Screen Negative (NEGATIVE) Urine Cocaine Screen Negative (NEGATIVE) Urine Marijuana (THC) Screen Negative (NEGATIVE) Prothrombin Time 10.4 SEC (9.30-11.50) Prothromb Time International Ratio 1.0 (0.9-1.1) Activated Partial Thromboplast Time 26 SEC (23-33) Last Vital Signs Date Time Temp Pulse Resp B/P (MAP) Pulse Ox O2 Delivery O2 Flow Rate FiO2 11/11/17 15:15 98.2 64 18 126/74 95 Room Air Status: unchanged Disposition: ADMITTED INPATIENT Condition: Serious Referrals: NOT CHOSEN ELVIA/,REFERRING (PCP) Teo Eugene Nov 11, 2017 16:02
[2017-11-11 16:40] LABS: BASOPHILS % (AUTO) 0.4 % (0.0-2.0); EOSINOPHILS % (AUTO) 1.2 % (0.0-3.0); LYMPHOCYTES % (AUTO) 11.2 % (20.0-45.0); MEAN CORPUSCULAR HEMOGLOBIN 26.7 PG (27.0-31.0); MEAN CORPUSCULAR HGB CONC 30.9 G/DL (32.0-36.0); MEAN CORPUSCULAR VOLUME 86 FL (80-99); MEAN PLATELET VOLUME 7.7 FL (6.5-10.1); MONOCYTES % (AUTO) 6.9 % (1.0-10.0); NEUTROPHILS % (AUTO) 80.3 % (45.0-75.0); PLATELET COUNT 125 K/UL (150-450); RED BLOOD COUNT 4.86 M/UL (4.70-6.10); RED CELL DISTRIBUTION WIDTH 12.6 % (11.6-14.8); WHITE BLOOD COUNT 9.3 K/UL (4.8-10.8)
[2017-11-11 16:55] LABS: APPEARANCE,URINE CLOUDY; KETONES,URINE NEGATIVE (NEGATIVE); LEUKOCYTE ESTERASE ,URINE 3+ (NEGATIVE); NITRITE,URINE NEGATIVE (NEGATIVE); PH,URINE 7 (4.5-8.0); PROTEIN,URINE NEGATIVE (NEGATIVE); UROBILINOGEN,URINE NORMAL MG/DL (0.0-1.0)
[2017-11-11 17:00] VITALS: BP 114/65
[2017-11-11 17:03] LABS: ANION GAP 7 mmol/L (5-15); CALCIUM 9.6 MG/DL (8.5-10.1); CARBON DIOXIDE 29 MMOL/L (21-32); CHLORIDE 104 MMOL/L (98-107); GLOMERULAR FILTRATION RATE > 60 mL/min (>60); SODIUM 140 MMOL/L (136-145)
[2017-11-11 17:07] LABS: ALANINE AMINOTRANSFERASE 17 U/L (12-78); ALBUMIN/GLOBULIN RATIO 0.8 (1.0-2.7); ASPARTATE AMINO TRANSFERASE 22 U/L (15-37); LIPASE 67 U/L (73-393)
[2017-11-11 17:09] LABS: BACTERIA,URINE MANY /HPF; WBC,URINE TNTC /HPF (0 - 0)
[2017-11-11] MEDS ORDERED: cefTRIAXone 2 GM in NS 55 ML IVPB ONE (17:30)
[2017-11-11 17:49] LABS: PROTHROMBIN TIME 10.4 SEC (9.30-11.50)
[2017-11-11 18:00] VITALS: BP 118/66
[2017-11-11 22:00] VITALS: BP 122/68
[2017-11-11 23:00] VITALS: BP 137/81
[2017-11-12 04:00] VITALS: BP 116/71
[2017-11-12 08:10] LABS: BASOPHILS % (AUTO) 0.6 % (0.0-2.0); EOSINOPHILS % (AUTO) 2.5 % (0.0-3.0); MEAN CORPUSCULAR HEMOGLOBIN 29.7 PG (27.0-31.0); MEAN CORPUSCULAR HGB CONC 33.8 G/DL (32.0-36.0); MEAN CORPUSCULAR VOLUME 88 FL (80-99); MEAN PLATELET VOLUME 8.4 FL (6.5-10.1); MONOCYTES % (AUTO) 8.9 % (1.0-10.0); PLATELET COUNT 111 K/UL (150-450); WHITE BLOOD COUNT 5.3 K/UL (4.8-10.8)
[2017-11-12 08:36] LABS: ALANINE AMINOTRANSFERASE 18 U/L (12-78); ALBUMIN/GLOBULIN RATIO 0.7 (1.0-2.7); ANION GAP 7 mmol/L (5-15); ASPARTATE AMINO TRANSFERASE 19 U/L (15-37); CALCIUM 9.5 MG/DL (8.5-10.1); CARBON DIOXIDE 30 MMOL/L (21-32); CHLORIDE 106 MMOL/L (98-107); CREATININE 0.8 MG/DL (0.55-1.30); GLOMERULAR FILTRATION RATE > 60 mL/min (>60); POTASSIUM 3.9 MMOL/L (3.5-5.1); SODIUM 143 MMOL/L (136-145); TOTAL PROTEIN 7.3 G/DL (6.4-8.2)
--- NOTE | 2017-11-12 09:46 | Diagnostic Imaging Report ---
Indication: Elbow pain, nausea, vomiting, diarrhea Technique: CT of the abdomen and pelvis utilizing automated exposure control with intravenous contrast. Venous scanning performed. CT dose: Total DLP 605.53 mGycm; CTDI vol 11.42 mGy Comparison: None. Correlation made to pelvis radiographs 07/27/2017 Findings: No oral contrast was administered. Images through the lower chest demonstrate dependent bibasilar atelectasis. Heart is not enlarged. There is no pericardial effusion. Nodular contour of the liver likely reflective of cirrhosis. Portal vein appears to be patent. No focal liver lesion is appreciated on this single phase study. Gallbladder contracted. A portal caval lymph node measures up to 11 mm in short axis. Additional smaller retroperitoneal nodes seen. The spleen is enlarged. Adrenal glands and pancreas grossly unremarkable. There is no bowel obstruction. No free intraperitoneal fluid or air. No focal inflammatory change surrounding the bowel. There is a fat-containing umbilical hernia with some mild inflammatory stranding. Kidneys enhance symmetrically with no urinary tract stones or hydronephrosis bilaterally. Bladder is mildly distended but otherwise unremarkable. Prostate is slightly heterogeneous with some central calcifications. There is a subacute/chronic left hip/pelvic fracture. Impression: * No evidence of small bowel obstruction, diverticulitis or appendicitis. * No hydronephrosis or ureteral calculi. Bladder is mildly distended. * Cirrhosis, splenomegaly and nonspecific portacaval and retroperitoneal lymph nodes. * Subacute/chronic left hip/pelvic fractures. * Fat-containing umbilical hernia with mild stranding in the herniated fat, possibly reflecting changes of very early fat necrosis. Correlate clinically. The CT scanner at [facility] is accredited by the [employer] and the scans are performed using protocols designed to limit radiation exposure to as low as reasonably achievable to attain images of sufficient resolution adequate for diagnostic evaluation.
--- NOTE | 2017-11-15 11:07 | Discharge Summary ---
Discharge Summary Hospital Course Date of Admission Nov 11, 2017 at 19:38 Date of Discharge Nov 12, 2017 at 12:09 Admitting Diagnosis generalized weakness, UTI, paraplegia HPI Jacoby Saucedo is a 62 year old male who was admitted on Nov 11, 2017 at 19:38 for Generalized Weakness,Urinary Tract Infection, Hospital Course dc summary #[id number] Discharge Discharge Disposition Patient signed AMA Discharge Diagnoses: Discharge Instructions Discharge Instructions Special Instructions I have been assigned to complete a D/C Summary on this account. I was not involved in the patient management Lissette Bradshaw NP ([place]) Nov 15, 2017 11:07
--- NOTE | 2017-11-16 04:15 | Discharge Summary 2 SIG ---
DATE OF ADMISSION: 11/11/2017 DATE OF SIGNING AGAINST MEDICAL ADVISE : 11/12/2017 REASON FOR ADMISSION: 62-year-old homeless male with history of COPD, hypertension, right blind eye, history of left femur fracture and left pubic fracture as well as cirrhosis and alcohol abuse, wheelchair bound, presented with increased nausea, vomiting and generalized weakness. The patient reported ongoing symptoms lasting for five days. Workup in the emergency room revealed stable vital signs. The patient was afebrile. No leukocytosis. Stable hemoglobin and hematocrit. Stable electrolytes. Renal parameters were within normal limits. LFT within normal limits. Lipase within normal limits - 67. Troponin negative. Urine toxicology screen was positive for opiates. Urinalysis was grossly positive for urinary tract infection. The patient was admitted with diagnosis of urinary tract infection, wheelchair bound and generalized weakness. HOSPITAL STAY: The patient admitted. The patient was started on empiric antibiotics and gentle IV fluids. Social service consult was requested for placement. The patient complained of pain, and Dr. Giordano ( on-call for Dr. Schmitt) was contacted. The patient did not want to wait for a return call from the physician. The risks and consequences of signing against medical advice were discussed with the patient by the nursing staff. The patient insisted on signing the form and left. Call back from the doctor was received after the patient already left. FINAL DIAGNOSES: 1. Urinary tract infection. 2. Wheelchair bound. 3. Generalized weakness. Sudhir Schmitt D.O. I have been assigned to dictate discharge summary on this account and I was not involved in the patient's management. Lissette MartinezE.J. Noble HospitalVincenzo N.P. DR: JAZMINE JOB#: [id number] CC: STEPHANIE
== END 2017-11-12 12:09 | disposition left against medical advice (07) | DRG 690 ==
LOC: EDBD 15:22 → EMR 15:44 → 3E 19:38 → EDBEDREQ 20:30 → 3E 22:00
DX: N39.0 Urinary tract infection, site not specified (principal); G82.20 Paraplegia, unspecified; I10 Essential (primary) hypertension; Z99.3 Dependence on wheelchair; J44.9 Chronic obstructive pulmonary disease, unspecified; R53.1 Weakness
CPT/HCPCS: 36415; 74177; 80053; 80307; 81003; 83690; 84484; 85025; 85610; 85730; 86850; 86900; 86901; 87081; 87086; 87181; 99285; J2405